=== PATIENT | female | born 1945 | race Caucasian/White ===

== ENCOUNTER 2017-09-30 16:03 | Observation (INO) | payer OTHER ==
--- NOTE | 2017-09-30 16:12 | PDOC ---
Rapid Medical Evaluation Chief Complaint: Diarrhea Time Seen by Provider: 09/30/17 16:11 Medical Evaluation: Allergies Allergy/AdvReac Type Severity Reaction Status Date / Time Sulfa (Sulfonamide Allergy Rash Verified 09/30/17 16:09 Antibiotics) 09/30/17 16:11 I have performed a brief in-person evaluation of this patient. The patient presents with a chief complaint of: diarrhea w/ abd pain x 1 week. No f/c/n/v. H/o cdif in 2015 Pertinent physical exam findings:stable w/ diffuse ttp to abd I have ordered the following:labs The patient will proceed to the ED for further evaluation Discharge Disposition - Diagnosis Diarrhea Qualifiers: Diarrhea type: unspecified type Qualified Code(s): R19.7 - Diarrhea, unspecified - Referrals - Patient Instructions - Post Discharge Activity
[2017-09-30 17:25] LABS: URINE APPEARANCE CLEAR; URINE BILIRUBIN NEGATIVE (<2.0 mg/dL); URINE COLOR YELLOW; URINE GLUCOSE (UA) NEGATIVE (NEGATIVE); URINE KETONE NEGATIVE (NEGATIVE); URINE NITRITE NEGATIVE (NEGATIVE); URINE PROTEIN NEGATIVE (NEGATIVE); URINE UROBILINOGEN NEGATIVE mg/dL (0.2-1.0)
[2017-09-30 17:27] LABS: URINE LEUK ESTERASE 3+ (NEGATIVE)
[2017-09-30 17:31] LABS: EPI CELLS RARE /HPF (FEW); URINE MUCUS RARE
[2017-09-30 17:38] LABS: ALBUMIN 3.9 g/dl (3.4-5.0); ANION GAP 9 (8-16); BLOOD UREA NITROGEN 11 mg/dL (7-18); CALCIUM 9.2 mg/dL (8.5-10.1); CHLORIDE 111 mmol/L (98-107); CO2 23 mmol/L (21-32); CREATININE 0.8 mg/dL (0.55-1.02); GLUCOSE,RANDOM 91 mg/dL (74-106); LIPASE 166 U/L (73-393); POTASSIUM 3.6 mmol/L (3.5-5.1); SGOT/AST 19 U/L (15-37); SGPT/ALT 27 U/L (12-78); SODIUM 143 mmol/L (136-145)
[2017-09-30 17:40] LABS: ALK PHOS 79 U/L (45-117); BILIRUBIN,TOTAL 0.6 mg/dL (0.2-1.0); TOT PROT 7.4 g/dl (6.4-8.2)
[2017-09-30] MEDS ORDERED: SODIUM CHLORIDE 1,000 ML IV STA ×2 (19:56→19:57)
[2017-09-30] MEDS ORDERED: ONDANSETRON 4 MG/2 ML VIAL IVPUSH ONE (19:56)
[2017-09-30] MEDS ORDERED: FAMOTIDINE IV 20 MG/12 ML VIAL IVPUSH ONE (19:56)
--- NOTE | 2017-09-30 19:59 | PDOC ---
History of Present Illness <Munira Moon - Last Filed: 10/01/17 01:55> - General History Source: Patient Exam Limitations: No Limitations - History of Present Illness Initial Comments: 09/30/17 20:42 The patient is a 72 year old female with a significant PMH of hypothyroidism, colitis, HTN, hyperlipidemia, and cdif in 2016 who presents to the emergency department with diarrhea and associated abdominal pain for the past week. The patient states the diarrhea began as hard, brown stool but has turned watery and dark over the past few days. The patient endorses she is unable to eat or drink because she has diarrhea immediately after. The patient is also complaining of nausea and feeling bloated. The patient reports she weights herself daily and has lost 7 lbs. within the last 9 days. The patient denies any recent antibiotic use, recent travel, or hospital admissions. The patient has not taken any medications for her diarrhea. The patient reports she had cdif in 2016. The patient denies blood in the stool, fever, chills, vomit, or constipation. Denies chest pain, shortness of breath, headache and dizziness. Denies dysuria, frequency, urgency and hematuria. Allergies: NKA Past surgical history: None reported. Social history: Former smoker. No reported alcohol or drug use. PCP: Dr. Meza <Nneka Henson - Last Filed: 10/01/17 03:11> - General Chief Complaint: Diarrhea Stated Complaint: DIARRHEA Time Seen by Provider: 09/30/17 16:11 Past History - Past Medical History Anemia: No Asthma: No Cancer: No Cardiac Disorders: Yes (OCCAS CHEST TIGHTNESS/PALPITATIONS") CVA: No COPD: No CHF: No Dementia: No Diabetes: No GI Disorders: Yes (COLITIS, GERD) Disorders: No HTN: Yes Hypercholesterolemia: Yes Liver Disease: No Seizures: No Thyroid Disease: Yes - Surgical History Abdominal Surgery: No Appendectomy: Yes Cardiac Surgery: No Cholecystectomy: No Lung Surgery: No Neurologic Surgery: Yes (BACK SX - 2011 AND 2013) Orthopedic Surgery: Yes (DARCY KNEE REPLACEMENTS, BACK/NECK SURGERY) - Immunization History Immunization Up to Date: Yes - Suicide/Smoking/Psychosocial Hx Smoking History: Former smoker Have you smoked in the past 12 months: No If you are a former smoker, when did you quit?: 20YRS AGO Information on smoking cessation initiated: No Hx Alcohol Use: No Drug/Substance Use Hx: No Substance Use Type: None Hx Substance Use Treatment: Yes <Munira Moon - Last Filed: 10/01/17 01:55> <Nneka Henson - Last Filed: 10/01/17 03:11> - Past Medical History Allergies/Adverse Reactions: Allergies Allergy/AdvReac Type Severity Reaction Status Date / Time Sulfa (Sulfonamide Allergy Rash Verified 09/30/17 16:09 Antibiotics) Home Medications: Ambulatory Orders Calcium Carbonate/Vitamin D3 [Calcium 250+D Tablet] 1 each PO DAILY 02/05/16 Diclofenac Potassium [Zipsor] 50 mg PO TID 02/05/16 Isosorbide Mononitrate [Imdur -] 30 mg PO DAILY 02/05/16 Levothyroxine [Synthroid -] 50 mcg PO DAILY 02/05/16 Metoprolol Tartrate [Lopressor -] 25 mg PO BID 02/05/16 [place]-3 Fatty Acids [[place]-3] 1,000 mg PO QID 02/05/16 Oxycodone HCl/Acetaminophen [Percocet 5-325 mg Tablet] 1 - 2 tab PO PRN Pregabalin [Lyrica] 100 mg PO TID 02/05/16 Simvastatin 20 mg PO DAILY 02/05/16 Zolpidem Tartrate [Ambien] 10 mg PO DAILY 02/05/16 Review of Systems - Review of Systems Able to Perform ROS?: Yes Comments:: 09/30/17 20:42 See HPI. All other systems reviewed and unremarkable <Nneka Henson - Last Filed: 10/01/17 03:11> *Physical Exam - Vital Signs Last Vital Signs Temp Pulse Resp BP Pulse Ox 98.6 F 97 H 18 142/98 98 09/30/17 16:09 09/30/17 16:09 09/30/17 16:09 09/30/17 16:09 09/30/17 16:09 <Munira Moon - Last Filed: 10/01/17 01:55> - Vital Signs Last Vital Signs Temp Pulse Resp BP Pulse Ox 98.6 F 97 H 18 142/98 98 09/30/17 16:09 09/30/17 16:09 09/30/17 16:09 09/30/17 16:09 09/30/17 16:09 - Physical Exam Comments: 09/30/17 20:42 General Physical Exam: NAD EOMI, ALFREDO MMM, OP WNL NCAT, no midline cervical tenderness RRR, nl s1/s2, no m/r/g CTABL, no w/r/r Soft, (+) Diffuse right abdominal tenderness. no guarding, no rebound No edema, WWP, no rash Neuro grossly intact, gait WNL, moving all 4 A&O x 3, mood/affect WNL. <Nneka Henson - Last Filed: 10/01/17 03:11> ED Treatment Course - LABORATORY CBC & Chemistry Diagram: 09/30/17 20:20 09/30/17 16:30 - ADDITIONAL ORDERS Additional order review: Laboratory Results 09/30/17 09/30/17 16:40 16:30 Sodium 143 Potassium 3.6 Chloride 111 H Carbon Dioxide 23 Anion Gap 9 BUN 11 Creatinine 0.8 Creat Clearance w eGFR > 60 Random Glucose 91 Calcium 9.2 Total Bilirubin 0.6 AST 19 ALT 27 Alkaline Phosphatase 79 Total Protein 7.4 Albumin 3.9 Lipase 166 Urine Color Yellow Urine Appearance Clear Urine pH 5.0 Ur Specific [place] 1.014 Urine Protein Negative Urine Glucose (UA) Negative Urine Ketones Negative Urine Blood 1+ H Urine Nitrite Negative Urine Bilirubin Negative Urine Urobilinogen Negative Ur Leukocyte Esterase 3+ H D Urine WBC (Auto) 11 Urine RBC (Auto) 1 Ur Epithelial Cells Rare Urine Mucus Rare 09/30/17 16:30 RBC Cancelled MCV Cancelled MCHC Cancelled RDW Cancelled MPV Cancelled Neutrophils % Cancelled Lymphocytes % Cancelled Monocytes % Cancelled Eosinophils % Cancelled Basophils % Cancelled <Munira Moon - Last Filed: 10/01/17 01:55> - LABORATORY CBC & Chemistry Diagram: 09/30/17 20:20 09/30/17 16:30 - ADDITIONAL ORDERS Additional order review: Laboratory Results 09/30/17 09/30/17 16:40 16:30 Sodium 143 Potassium 3.6 Chloride 111 H Carbon Dioxide 23 Anion Gap 9 BUN 11 Creatinine 0.8 Creat Clearance w eGFR > 60 Random Glucose 91 Calcium 9.2 Total Bilirubin 0.6 AST 19 ALT 27 Alkaline Phosphatase 79 Total Protein 7.4 Albumin 3.9 Lipase 166 Urine Color Yellow Urine Appearance Clear Urine pH 5.0 Ur Specific [place] 1.014 Urine Protein Negative Urine Glucose (UA) Negative Urine Ketones Negative Urine Blood 1+ H Urine Nitrite Negative Urine Bilirubin Negative Urine Urobilinogen Negative Ur Leukocyte Esterase 3+ H D Urine WBC (Auto) 11 Urine RBC (Auto) 1 Ur Epithelial Cells Rare Urine Mucus Rare 09/30/17 09/30/17 20:20 16:30 RBC 4.85 Cancelled MCV 86.4 Cancelled MCHC 33.1 Cancelled RDW 13.4 Cancelled MPV 9.9 Cancelled Neutrophils % 62.3 Cancelled Lymphocytes % 25.0 D Cancelled Monocytes % 11.2 H Cancelled Eosinophils % 1.0 Cancelled Basophils % 0.5 Cancelled - Medications Given in the ED: ED Medications Discontinued Medications Generic Name Dose Route Start Last Admin Trade Name Freq PRN Reason Stop Dose Admin Famotidine 20 mg in 12 mls @ 144 mls/hr 09/30/17 19:56 09/30/17 20:26 Pepcid 20 Mg/12 Ml Push IVPUSH 09/30/17 20:00 144 mls/hr ONCE ONE Administration Morphine Sulfate 4 mg 09/30/17 20:06 09/30/17 20:36 Morphine Injection - IVPUSH 09/30/17 20:07 4 mg ONCE ONE Administration Ondansetron HCl 4 mg 09/30/17 19:56 09/30/17 20:33 Zofran Injection IVPUSH 09/30/17 19:57 4 mg ONCE ONE Administration <Nneka Henson - Last Filed: 10/01/17 03:11> Medical Decision Making - Medical Decision Making 09/30/17 21:44 72yoF hx of colitis and prior c.diff infection presents w/ R sided abd pain and progressive diarrhea x 4 days smilar to prior colitis/c.diff infection. - labs - stool studies - CTAP - ivf, pain control, flagyl - reeval, may need admission. Pt is stating lives along and does not feel comfortable at home in current state. <Munira Moon - Last Filed: 10/01/17 01:55> - Medical Decision Making 10/01/17 02:30 Dr. Nolan paged to admit the patient. 10/01/17 03:10 Dr. Ahmed returned call. <Nneka Henson - Last Filed: 10/01/17 03:11> *DC/Admit/Observation/Transfer - Discharge Dispostion Decision to Admit order: Yes <Munira Moon - Last Filed: 10/01/17 01:55> - Attestations Scribe Attestion: 09/30/17 20:42 Documentation prepared by Nneka Henson, acting as medical appointment clerk for Munira Moon MD. <Nneka Henson - Last Filed: 10/01/17 03:11> Diagnosis at time of Disposition: Diarrhea Qualifiers: Diarrhea type: unspecified type Qualified Code(s): R19.7 - Diarrhea, unspecified - Discharge Dispostion Condition at time of disposition: Stable
[2017-09-30] MEDS ORDERED: morphine CARPU-JECT 4 MG/1 ML DISP.SYRIN IVPUSH ONE (20:06)
[2017-09-30] MEDS ORDERED: ONDANSETRON 4 MG/2 ML VIAL ONE (20:14)
[2017-09-30] MEDS ORDERED: FAMOTIDINE 20 MG/50 ML IVPB 20 MG/50 ML MG IVPB ONE (20:14)
[2017-09-30] MEDS ORDERED: morphine SULFATE 4 MG/ML VIAL ONE (20:14)
[2017-09-30 20:31] LABS: BASO % 0.5 % (0-2.0); HEMATOCRIT 41.9 % (32.4-45.2); HEMOGLOBIN 13.9 GM/dL (10.7-15.3); MCH 28.6 pg (25.7-33.7); MCHC 33.1 g/dl (32.0-36.0); MEAN CELL VOLUME 86.4 fl (80-96); MEAN PLT VOLUME 9.9 fl (7.5-11.1); MONO % 11.2 % (3.8-10.2); NEUT % 62.3 % (42.8-82.8); PLATELET COUNT 286 K/MM3 (134-434); RBC 4.85 M/mm3 (3.60-5.2); RDW 13.4 % (11.6-15.6); WHITE BLOOD COUNT 8.6 K/mm3 (4.0-10.0)
[2017-09-30 20:52] LABS: INR 1.05 (0.82-1.09); PROTHROMBIN TIME (PATIENT) 11.9 SEC (9.7-13.0)
[2017-09-30 20:55] LABS: ACTIVATED PTT 30.5 SECONDS (26.9-34.4)
[2017-10-01] MEDS ORDERED: SODIUM CHLORIDE 1,000 ML IV STA (02:15)
[2017-10-01] MEDS ORDERED: morphine CARPU-JECT 4 MG/1 ML DISP.SYRIN IVPUSH ONE (02:15)
[2017-10-01] MEDS ORDERED: morphine CARPU-JECT 2 MG/1 ML DISP.SYRIN ONE (02:35)
[2017-10-01] MEDS ORDERED: ONDANSETRON 4 MG/2 ML VIAL IVPUSH PRN (03:19)
[2017-10-01] MEDS ORDERED: D5-1/2NS+10 MEQ KCL - 10 MEQ/1,000 ML INFUS.BAG IV SCH (03:30)
[2017-10-01] MEDS ORDERED: oxyCODONE HCL 5 MG TABLET PO PRN (03:34)
[2017-10-01] MEDS: PREGABALIN 50 MG CAPSULE PO SCH ×3 (05:33→21:42)
[2017-10-01] MEDS: LEVOTHYROXINE NA 50 MCG TABLET (FP) PO SCH (06:02)
[2017-10-01] MEDS: morphine SULFATE 4 MG/ML VIAL IVPUSH PRN ×3 (06:58→18:30)
[2017-10-01 07:49] LABS: BASO % 0.6 % (0-2.0); EOS % 1.5 % (0-4.5); HEMATOCRIT 39.7 % (32.4-45.2); HEMOGLOBIN 13.4 GM/dL (10.7-15.3); LYMPH % 27.2 % (8-40); MCHC 33.7 g/dl (32.0-36.0); MEAN PLT VOLUME 10.4 fl (7.5-11.1); MONO % 13.2 % (3.8-10.2); NEUT % 57.5 % (42.8-82.8); PLATELET COUNT 227 K/MM3 (134-434); RBC 4.62 M/mm3 (3.60-5.2); RDW 13.4 % (11.6-15.6); WHITE BLOOD COUNT 6.6 K/mm3 (4.0-10.0)
[2017-10-01 08:02] LABS: ANION GAP 9 (8-16); BLOOD UREA NITROGEN 8 mg/dL (7-18); CALCIUM 8.6 mg/dL (8.5-10.1); CHLORIDE 113 mmol/L (98-107); CO2 22 mmol/L (21-32); GLUCOSE,RANDOM 89 mg/dL (74-106); SODIUM 144 mmol/L (136-145)
[2017-10-01 08:05] LABS: CREATININE 0.8 mg/dL (0.55-1.02)
[2017-10-01 08:48] LABS: POTASSIUM 3.9 mmol/L (3.5-5.1)
--- NOTE | 2017-10-01 08:54 | EKG ---
Test Reason : Blood Pressure : / mmHG Vent. Rate : 081 BPM Atrial Rate : 081 BPM P-R Int : 166 ms QRS Dur : 088 ms QT Int : 396 ms P-R-T Axes : 049 -11 023 degrees QTc Int : 460 ms SINUS RHYTHM WITH OCCASIONAL PREMATURE VENTRICULAR COMPLEXES POSSIBLE LEFT ATRIAL ENLARGEMENT BORDERLINE ECG WHEN COMPARED WITH ECG OF 05-FEB-2016 15:24, PREMATURE VENTRICULAR COMPLEXES ARE NOW PRESENT Confirmed by IWONA BEE, GIULIANO ([id number]) on 10/01/2017 8:54:20 AM Referred By: Confirmed By:GIULIANO BUSTILLO MD
[2017-10-01] MEDS: METOPROLOL TARTRATE 25 MG TABLET (FP) PO SCH ×2 (09:04→21:42)
[2017-10-01] MEDS: ISOSORBIDE MONONITRATE 30 MG TAB.SR.24H (FP) PO SCH (09:04)
--- NOTE | 2017-10-01 12:21 | HP ---
Admitting History and Physical - Primary Care Physician PCP: Lenin Meza - Admission Chief Complaint: Diarrhea History of Present Illness: 72 year old F H/O of hypothyroidism, colitis, HTN, hyperlipidemia, and cdif Diarrhea in 2016 who presents to the emergency department with 10 days H/O watery diarrhea and and crampy abdominal pain, diarrhea, watery, mixed with muvpiud, 7-10 large volume with nausea and gaseous distention, The patient reports she weights herself daily and has lost 7 lbs, denies any recent antibiotic use, recent travel, or hospital admissions, c/o poor {o intake denies any hemetmesis or melena. - Past Medical History Cardiovascular: Yes: HTN, Hyperlipdemia ...: No Musculoskeletal: Yes: Chronic low back pain Endocrine: Yes: Hypothyroidism - Past Surgical History Past Surgical History: Yes: Joint Replacement - Smoking History Smoking history: Former smoker Have you smoked in the past 12 months: No If you are a former smoker, when did you quit?: 30YRS AGO - Alcohol/Substance Use Hx Alcohol Use: No History of Substance Use: reports: None - Social History ADL: Independent History of Recent Travel: No Home Medications - Allergies Allergies/Adverse Reactions: Allergies Allergy/AdvReac Type Severity Reaction Status Date / Time Sulfa (Sulfonamide Allergy Rash Verified 09/30/17 16:09 Antibiotics) - Home Medications Home Medications: Ambulatory Orders Calcium Carbonate/Vitamin D3 [Calcium 250+D Tablet] 1 each PO DAILY 02/05/16 Diclofenac Potassium [Zipsor] 50 mg PO TID 02/05/16 Isosorbide Mononitrate [Imdur -] 30 mg PO DAILY 02/05/16 Levothyroxine [Synthroid -] 50 mcg PO DAILY 02/05/16 Metoprolol Tartrate [Lopressor -] 25 mg PO BID 02/05/16 [place]-3 Fatty Acids [[place]-3] 1,000 mg PO QID 02/05/16 Oxycodone HCl/Acetaminophen [Percocet 5-325 mg Tablet] 1 - 2 tab PO PRN Pregabalin [Lyrica] 100 mg PO TID 02/05/16 Simvastatin 20 mg PO DAILY 02/05/16 Zolpidem Tartrate [Ambien] 10 mg PO DAILY 02/05/16 Family Disease History - Family Disease History Family Disease History: CA: Father Review of Systems - Review of Systems Constitutional: reports: Loss of Appetite, Malaise. denies: Diaphoresis, Fever HENT: denies: Difficult Swallowing, Ear Discharge, Epistaxis Neck: denies: Decreased ROM, Lumps Cardiovascular: denies: Chest Pain, Edema, Palpitations Respiratory: denies: Exercise Intolerance, Hemoptysis, Orthopnea Gastrointestinal: reports: Abdominal Pain, Bloating, Diarrhea, Nausea. denies: Melena, Rectal Bleeding, Vomiting, Vomiting Blood Musculoskeletal: reports: Back Pain Integumentary: denies: Blister, Bruising Endocrine: denies: Excessive Sweating, Flushing Hematology/Lymphatic: denies: Easily Bruised, Excessive Bleeding Psychiatric: reports: Altered Sleep Pattern Pain Intensity: 6 Physical Examination Vital Signs: Vital Signs Temperature 98.5 F 10/01/17 10:00 Pulse Rate 73 10/01/17 10:00 Respiratory Rate 16 10/01/17 10:00 Blood Pressure 135/83 10/01/17 10:00 O2 Sat by Pulse Oximetry (%) 98 10/01/17 10:00 Constitutional: Yes: Well Nourished, No Distress, Anxious Eyes: Yes: Conjunctiva Clear, EOM Intact. No: Diplopia HENT: Yes: Atraumatic, Normocephalic. No: Drooling, Hoarseness Neck: Yes: Supple, Trachea Midline. No: Decreased ROM, Lymphadenopathy Cardiovascular: Yes: Regular Rate and Rhythm, S1, S2. No: Bruit, Murmur, Rub Respiratory: Yes: Regular, CTA Bilaterally Gastrointestinal: Yes: Normal Bowel Sounds, Soft, Tenderness (Left LQ). No: Distention, Hematemesis, Melena, Splenomegaly Musculoskeletal: Yes: Back Pain. No: Joint Swelling Extremities: Yes: WNL. No: Calf Tenderness, Cyanosis Edema: No Peripheral Pulses WNL: Yes Peripheral Pulses: Left Doralis Pedis: 0, Right Dorsalis Pedis: 0 Neurological: Yes: WNL, Alert, Oriented. No: Aphasia, Asterixis ...Motor Strength: WNL, LUE, LLE, RUE, RLE Psychiatric: Yes: Alert, Oriented. No: Agitated, Suicidal Ideation Labs: CBC, BMP 10/01/17 07:15 10/01/17 07:15 Imaging - Results Cat Scan: Report Reviewed (No Collitis, Diverticullitis) Problem List - Problems (1) Diarrhea Assessment/Plan: Watery no fever TWBC normal, CT normal, C Diff -ve, will start Lactose free diet, GI consult last colonoscopy -ve 2 yrs ago. Code(s): R19.7 - DIARRHEA, UNSPECIFIED Qualifiers: Diarrhea type: unspecified type Qualified Code(s): R19.7 - Diarrhea, unspecified (2) History of - hypothyroidism Assessment/Plan: Cont Levothyroxine F/U TSH Code(s): Z86.39 - PERSONAL HISTORY OF ENDO, NUTRITIONAL AND METABOLIC DISEASE (3) Spinal stenosis Assessment/Plan: S/p Lamenectomy cont Pain meds Code(s): M48.00 - SPINAL STENOSIS, SITE UNSPECIFIED (4) Hypertension Assessment/Plan: Well controlled cont Home meds Code(s): I10 - ESSENTIAL (PRIMARY) HYPERTENSION (5) Vasospastic angina Assessment/Plan: Normal Cath on Imdur Code(s): I20.1 - ANGINA PECTORIS WITH DOCUMENTED SPASM
--- NOTE | 2017-10-01 14:03 | CON.GI ---
Consult Consult Specialty:: GI: Dr. Gutierrez covering for Dr. Love Referred by:: Dr. Nolan Reason for Consultation:: Diarrhea - History of Present Illness Chief Complaint: Diarrhea History of Present Illness: 72F admitted for 10 days work of frequent watery BM's. She was a previous patient of Dr. Galloway. in review of [facility], Dr. Lacy performed EGD and colonoscopy for her 03/24 due to unexplained diarrhea. EGD revealed reflux esophagitis and colonoscopy revealed moderate diverticulosis and was otherwise normal. biopsies from borth procedures were unrevealing for a source of diarrhea. O&P study was unrevealing 05/24. She was FOBT + on admission yesterday. She states that the diarrhea comes and goes as does episodes of constipation however this diarrhea was more prolonged leading to her eval in ER. She complains of abdominal pain in the lower abdomen as well. She denies recent travel, change in diet or recent antibiotic use. There is no precipitating foods and it occurs with and without eating, sometimes waking her from her sleep. She denies unintentional weight loss, fevers/chills, rectal bleeding or melena. There is no family nhistory of colorectal cancer or IBD. Stool C. Diff toxin and antigen this admission were negative. CBC and CMP are normal. She continues to have loose bowel movements. She has not taken any antidiarrheals at home or in hospital. She denies the introduction of any new medications. There has been no vomiting but she does complain of nausea. - History Source History Provided By: Patient, Medical Record - Past Medical History Cardio/Vascular: Yes: HTN, Hyperlipdemia ...: No Musculoskeletal: Yes: Chronic low back pain Endocrine: Yes: Hypothyroidism - Past Surgical History Past Surgical History: Yes: Joint Replacement Additional Surgical History: B/L knee surgeries, back surgery - Alcohol/Substance Use Hx Alcohol Use: No History of Substance Use: reports: None - Smoking History Smoking history: Former smoker Have you smoked in the past 12 months: No If you are a former smoker, when did you quit?: 30YRS AGO - Social History ADL: Independent Occupation: retired clerical worker Place of : [facility] History of Recent Travel: No Home Medications - Allergies Allergies/Adverse Reactions: Allergies Allergy/AdvReac Type Severity Reaction Status Date / Time Sulfa (Sulfonamide Allergy Rash Verified 09/30/17 16:09 Antibiotics) - Home Medications Home Medications: Ambulatory Orders Calcium Carbonate/Vitamin D3 [Calcium 250+D Tablet] 1 each PO DAILY 02/05/16 Diclofenac Potassium [Zipsor] 50 mg PO TID 02/05/16 Isosorbide Mononitrate [Imdur -] 30 mg PO DAILY 02/05/16 Levothyroxine [Synthroid -] 50 mcg PO DAILY 02/05/16 Metoprolol Tartrate [Lopressor -] 25 mg PO BID 02/05/16 [place]-3 Fatty Acids [[place]-3] 1,000 mg PO QID 02/05/16 Oxycodone HCl/Acetaminophen [Percocet 5-325 mg Tablet] 1 - 2 tab PO PRN Pregabalin [Lyrica] 100 mg PO TID 02/05/16 Simvastatin 20 mg PO DAILY 02/05/16 Zolpidem Tartrate [Ambien] 10 mg PO DAILY 02/05/16 Family Disease History - Family Disease History Family Disease History: Heart Disease: Mother (: 89: CAD), CA: Father ( : 63: leukemia), Other: Daughter (2, healthy) Other Family History: No family history of colorectal cancer, IBD, celiac disease Review of Systems - Review of Systems Constitutional: denies: Chills, Fever, Unintentional Wgt. Loss Cardiovascular: denies: Chest Pain Respiratory: denies: SOB Gastrointestinal: reports: Abdominal Pain, Constipation (intermittent), Diarrhea , Dysphagia (occasional), Nausea. denies: Rectal Bleeding, Vomiting Genitourinary: denies: Burning Musculoskeletal: reports: Extremity Pain (LE B/L) Physical Exam-GI Vital Signs: Vital Signs Temperature 98.5 F 10/01/17 10:00 Pulse Rate 73 10/01/17 10:00 Respiratory Rate 16 10/01/17 10:00 Blood Pressure 135/83 10/01/17 10:00 O2 Sat by Pulse Oximetry (%) 98 10/01/17 10:00 Constitutional: Yes: Calm Eyes: No: Sclera Icterus Cardiovascular: Yes: Regular Rate and Rhythm. No: Murmur Respiratory: Yes: CTA Bilaterally Gastrointestinal Inspection: No: Distention, Scars ...Auscultate: Yes: Normoactive Bowel Sounds ...Palpate: Yes: Tenderness (Mild TTP below left lower ribs) ...Percussion: No: Tympanitic ...Rectal Exam: Yes: Sphincter Tone Poor, Other (Chemistry Account Manager present: No external lesions, no masses, no stool in rectal vault) Edema: No (No LE edema) Neurological: Yes: Alert, Oriented Labs: CBC, BMP 10/01/17 07:15 10/01/17 07:15 INR, PTT INR 1.05 (0.82-1.09) 09/30/17 20:20 Hepatic Panel Total Bilirubin 0.6 mg/dL (0.2-1.0) 09/30/17 16:30 AST 19 U/L (15-37) 09/30/17 16:30 ALT 27 U/L (12-78) 09/30/17 16:30 Alkaline Phosphatase 79 U/L (45-117) 09/30/17 16:30 Albumin 3.9 g/dl (3.4-5.0) 09/30/17 16:30 Imaging - Results Cat Scan: Report Reviewed, Image Reviewed Problem List - Problems (1) Diarrhea Assessment/Plan: Assessment: acute episode with intermittent bouts in the past along with episodes of constipation: Secretory in nature by description of the day time and nocturnal symptoms ? etiology: atypical presentation of narcotic bowel syndrome, ? infectious, ? bile acid malabsorption, production of secretagogues, ? IBS Plan: Low residue / lactose free diet Stool culture, fecal leukocytes Check celiac serologies (negative duodenal biopsies 2 years ago) Check fasting gastrin level Trial of cholestyramine in afternoon after meds given Code(s): R19.7 - DIARRHEA, UNSPECIFIED Qualifiers: Diarrhea type: unspecified type Qualified Code(s): R19.7 - Diarrhea, unspecified
[2017-10-01] MEDS ORDERED: CHOLESTYRAMINE/SUCROSE 4 GM PACKET PO SCH (15:15)
[2017-10-01] MEDS: ACETAMINOPHEN 325 MG TABLET (FP) PO PRN (16:07)
[2017-10-01] MEDS: ATORVASTATIN CA 10 MG TABLET (FP) PO SCH (21:42)
[2017-10-01] MEDS: ZOLPIDEM TARTRATE 5 MG TABLET PO PRN (21:43)
[2017-10-02] MEDS: LEVOTHYROXINE NA 50 MCG TABLET (FP) PO SCH (06:07)
[2017-10-02] MEDS: morphine SULFATE 4 MG/ML VIAL IVPUSH PRN ×2 (06:07→13:58)
[2017-10-02] MEDS: PREGABALIN 50 MG CAPSULE PO SCH ×3 (06:07→21:58)
[2017-10-02 08:16] LABS: BASO % 0.5 % (0-2.0); EOS % 1.7 % (0-4.5); HEMATOCRIT 38.6 % (32.4-45.2); HEMOGLOBIN 13.1 GM/dL (10.7-15.3); LYMPH % 24.7 % (8-40); MCH 29.2 pg (25.7-33.7); MCHC 33.9 g/dl (32.0-36.0); MEAN CELL VOLUME 86.2 fl (80-96); MEAN PLT VOLUME 10.5 fl (7.5-11.1); MONO % 11.1 % (3.8-10.2); PLATELET COUNT 270 K/MM3 (134-434); RBC 4.48 M/mm3 (3.60-5.2); RDW 13.3 % (11.6-15.6); WHITE BLOOD COUNT 6.1 K/mm3 (4.0-10.0)
[2017-10-02 09:02] LABS: CHLORIDE 113 mmol/L (98-107); POTASSIUM 3.7 mmol/L (3.5-5.1); SODIUM 146 mmol/L (136-145)
[2017-10-02 09:19] LABS: ANION GAP 9 (8-16); BLOOD UREA NITROGEN 5 mg/dL (7-18); CALCIUM 8.5 mg/dL (8.5-10.1); CO2 24 mmol/L (21-32); CREATININE 0.7 mg/dL (0.55-1.02); GLUCOSE,RANDOM 79 mg/dL (74-106)
[2017-10-02 09:56] LABS: MAGNESIUM 2.1 mg/dL (1.8-2.4)
[2017-10-02] MEDS: METOPROLOL TARTRATE 25 MG TABLET (FP) PO SCH ×2 (10:22→21:58)
[2017-10-02] MEDS: ISOSORBIDE MONONITRATE 30 MG TAB.SR.24H (FP) PO SCH (10:22)
[2017-10-02] MEDS: POTASSIUM CHLORIDE 10 MEQ in DEXTROSE 5%-0.45% SALINE 1,000 ML IVPB SCH ×2 (13:57→18:26)
--- NOTE | 2017-10-02 14:10 | PN ---
GI Progress Note Subjective: Still with diarrhea She feels that the cholestyramine made it worse - Objective Vital Signs: Vital Signs Temperature 98.6 F 10/02/17 09:00 Pulse Rate 69 10/02/17 09:00 Respiratory Rate 18 10/02/17 09:00 Blood Pressure 126/93 10/02/17 09:00 O2 Sat by Pulse Oximetry (%) 98 10/02/17 09:00 Constitutional: Calm Eyes: No: Sclera Icterus Cardiovascular: Yes: Regular Rate and Rhythm Gastrointestinal Inspection: No: Distention ...Auscultate: Yes: Normoactive Bowel Sounds ...Palpate: Yes: Tenderness (complains of mild TTP in the pelvis). No: Guarding , Tenderness, Rebound ...Percussion: No: Tympanitic Edema: No (No LE edema) Labs: CBC, BMP 10/02/17 06:36 10/02/17 06:36 INR, PTT INR 1.05 (0.82-1.09) 09/30/17 20:20 Labs: 10/02/17 10/02/17 06:36 06:36 C-Reactive Protein 0.4 H Gastrin Pending Laboratory Tests 10/02/17 06:36 IgA Pending Endomysial IgA Ab Pending Tiss Transglutamin IgG Pending Tiss Transglutamin IgA Pending Anti-Gliadin IgG Ab Pending Anti-Gliadin IgA Ab Pending Problem List - Problems (1) Diarrhea Assessment/Plan: Diarrhea persists C. Diff negative Will give antidiarrheal today Serologic w/u pending Stool culture pending / O&P pending / Gram's stain pending Medication elimination as feasible ? need for morphine and roxicodone Code(s): R19.7 - DIARRHEA, UNSPECIFIED Qualifiers: Diarrhea type: unspecified type Qualified Code(s): R19.7 - Diarrhea, unspecified
[2017-10-02] MEDS ORDERED: LOPERAMIDE HCL 2 MG CAPSULE PO ONE (14:15)
[2017-10-02] MEDS: CHOLESTYRAMINE/ASPARTAME 4 GM PACKET PO SCH (14:54)
--- NOTE | 2017-10-02 15:49 | PN ---
Progress Note, Physician Chief Complaint: few loose stool - Current Medication List Current Medications: Active Medications Acetaminophen (Tylenol -) 325 mg PO Q6H PRN PRN Reason: PAIN LEVEL 6-10 Last Admin: 10/01/17 16:07 Dose: 325 mg Atorvastatin Calcium (Lipitor -) 10 mg PO HS [facility] Last Admin: 10/01/17 21:42 Dose: 10 mg Cholestyramine Resin (Questran Light Packet -) 2 gm PO DAILY@1500 [facility] Last Admin: 10/02/17 14:54 Dose: Not Given Potassium Chloride 10 meq/ (Dextrose/Sodium Chloride) 1,005 mls @ 100 mls/hr IVPB Q10H [facility] Last Admin: 10/02/17 13:57 Dose: 100 mls/hr Isosorbide Mononitrate (Imdur -) 30 mg PO DAILY [facility] Last Admin: 10/02/17 10:22 Dose: 30 mg Levothyroxine Sodium (Synthroid -) 50 mcg PO DAILY@0700 [facility] Last Admin: 10/02/17 06:07 Dose: 50 mcg Metoprolol Tartrate (Lopressor -) 25 mg PO BID [facility] Last Admin: 10/02/17 10:22 Dose: 25 mg Ondansetron HCl (Zofran Injection) 4 mg IVPUSH Q6H PRN PRN Reason: NAUSEA Last Admin: 10/01/17 06:02 Dose: 4 mg Oxycodone HCl (Roxicodone -) 10 mg PO Q6H PRN PRN Reason: PAIN LEVEL 6-10 Pregabalin (Lyrica -) 100 mg PO TID [facility] Last Admin: 10/02/17 13:57 Dose: 100 mg Zolpidem Tartrate (Ambien -) 5 mg PO HS PRN PRN Reason: INSOMNIA Last Admin: 10/01/17 21:43 Dose: 5 mg - Objective Vital Signs: Vital Signs Temperature 98.6 F 10/02/17 15:00 Pulse Rate 66 10/02/17 15:00 Respiratory Rate 18 10/02/17 15:00 Blood Pressure 120/68 10/02/17 15:00 O2 Sat by Pulse Oximetry (%) 98 10/02/17 09:00 Constitutional: Yes: Well Nourished, No Distress, Anxious Eyes: Yes: Conjunctiva Clear, EOM Intact. No: Diplopia HENT: Yes: Atraumatic, Normocephalic. No: Drooling, Hoarseness Neck: Yes: Supple, Trachea Midline. No: Decreased ROM, Lymphadenopathy Cardiovascular: Yes: Regular Rate and Rhythm, S1, S2. No: Bruit, Murmur, Rub Respiratory: Yes: Regular, CTA Bilaterally Gastrointestinal: Yes: Normal Bowel Sounds, Soft, Tenderness (Left LQ). No: Distention, Hematemesis, Melena, Splenomegaly Musculoskeletal: Yes: Back Pain. No: Joint Swelling Extremities: Yes: WNL. No: Calf Tenderness, Cyanosis Edema: No Peripheral Pulses WNL: Yes Peripheral Pulses: Left Doralis Pedis: 0, Right Dorsalis Pedis: 0 Neurological: Yes: WNL, Alert, Oriented. No: Aphasia, Asterixis ...Motor Strength: WNL, LUE, LLE, RUE, RLE Psychiatric: Yes: Alert, Oriented. No: Agitated, Suicidal Ideation Labs: CBC, BMP 10/02/17 06:36 10/02/17 06:36 INR, PTT INR 1.05 (0.82-1.09) 09/30/17 20:20 Problem List - Problems (1) Diarrhea Assessment/Plan: Watery no fever TWBC normal, CT normal, C Diff -ve, will start Lactose free diet, GI consult last colonoscopy -ve 2 yrs ago. Code(s): R19.7 - DIARRHEA, UNSPECIFIED Qualifiers: Diarrhea type: unspecified type Qualified Code(s): R19.7 - Diarrhea, unspecified (2) History of - hypothyroidism Assessment/Plan: Cont Levothyroxine F/U TSH Code(s): Z86.39 - PERSONAL HISTORY OF ENDO, NUTRITIONAL AND METABOLIC DISEASE (3) Spinal stenosis Assessment/Plan: S/p Lamenectomy cont Pain meds Code(s): M48.00 - SPINAL STENOSIS, SITE UNSPECIFIED (4) Hypertension Assessment/Plan: Well controlled cont Home meds Code(s): I10 - ESSENTIAL (PRIMARY) HYPERTENSION (5) Vasospastic angina Assessment/Plan: Normal Cath on Imdur Code(s): I20.1 - ANGINA PECTORIS WITH DOCUMENTED SPASM
[2017-10-02] MEDS: ZOLPIDEM TARTRATE 5 MG TABLET PO PRN (21:58)
[2017-10-02] MEDS: oxyCODONE HCL 5 MG TABLET PO PRN (21:58)
[2017-10-02] MEDS: ATORVASTATIN CA 10 MG TABLET (FP) PO SCH (21:58)
[2017-10-03] MEDS: PREGABALIN 50 MG CAPSULE PO SCH ×3 (05:58→21:42)
[2017-10-03] MEDS: LEVOTHYROXINE NA 50 MCG TABLET (FP) PO SCH (05:59)
[2017-10-03 06:34] LABS: BASO % 0.3 % (0-2.0); EOS % 1.6 % (0-4.5); HEMATOCRIT 38.1 % (32.4-45.2); HEMOGLOBIN 12.9 GM/dL (10.7-15.3); LYMPH % 28.2 % (8-40); MCH 29.1 pg (25.7-33.7); MCHC 33.8 g/dl (32.0-36.0); MEAN CELL VOLUME 85.9 fl (80-96); MEAN PLT VOLUME 10.1 fl (7.5-11.1); MONO % 14.3 % (3.8-10.2); NEUT % 55.6 % (42.8-82.8); PLATELET COUNT 268 K/MM3 (134-434); RBC 4.44 M/mm3 (3.60-5.2); RDW 13.5 % (11.6-15.6); WHITE BLOOD COUNT 6.7 K/mm3 (4.0-10.0)
[2017-10-03 07:17] LABS: CHLORIDE 111 mmol/L (98-107); POTASSIUM 3.8 mmol/L (3.5-5.1); SODIUM 144 mmol/L (136-145)
[2017-10-03 07:33] LABS: ANION GAP 6 (8-16); BLOOD UREA NITROGEN 6 mg/dL (7-18); CALCIUM 8.3 mg/dL (8.5-10.1); CO2 27 mmol/L (21-32); CREATININE 0.8 mg/dL (0.55-1.02); GLUCOSE,RANDOM 80 mg/dL (74-106)
[2017-10-03] MEDS: oxyCODONE HCL 5 MG TABLET PO PRN ×2 (08:44→21:42)
[2017-10-03] MEDS: ISOSORBIDE MONONITRATE 30 MG TAB.SR.24H (FP) PO SCH (09:35)
[2017-10-03] MEDS: METOPROLOL TARTRATE 25 MG TABLET (FP) PO SCH ×2 (09:35→21:41)
--- NOTE | 2017-10-03 12:46 | PN ---
Progress Note, Physician Chief Complaint: few loose stool, feels better - Current Medication List Current Medications: Active Medications Acetaminophen (Tylenol -) 325 mg PO Q6H PRN PRN Reason: PAIN LEVEL 6-10 Last Admin: 10/01/17 16:07 Dose: 325 mg Atorvastatin Calcium (Lipitor -) 10 mg PO HS [facility] Last Admin: 10/02/17 21:58 Dose: 10 mg Cholestyramine Resin (Questran Light Packet -) 2 gm PO DAILY@1500 [facility] Last Admin: 10/02/17 14:54 Dose: Not Given Isosorbide Mononitrate (Imdur -) 30 mg PO DAILY [facility] Last Admin: 10/03/17 09:35 Dose: 30 mg Levothyroxine Sodium (Synthroid -) 50 mcg PO DAILY@0700 [facility] Last Admin: 10/03/17 05:59 Dose: 50 mcg Metoprolol Tartrate (Lopressor -) 25 mg PO BID [facility] Last Admin: 10/03/17 09:35 Dose: 25 mg Ondansetron HCl (Zofran Injection) 4 mg IVPUSH Q6H PRN PRN Reason: NAUSEA Last Admin: 10/01/17 06:02 Dose: 4 mg Oxycodone HCl (Roxicodone -) 10 mg PO Q6H PRN PRN Reason: PAIN LEVEL 6-10 Last Admin: 10/03/17 08:44 Dose: 10 mg Pregabalin (Lyrica -) 100 mg PO TID [facility] Last Admin: 10/03/17 05:58 Dose: 100 mg Zolpidem Tartrate (Ambien -) 5 mg PO HS PRN PRN Reason: INSOMNIA Last Admin: 10/02/17 21:58 Dose: 5 mg - Objective Vital Signs: Vital Signs Temperature 98.5 F 10/03/17 10:00 Pulse Rate 74 10/03/17 10:00 Respiratory Rate 18 10/03/17 10:00 Blood Pressure 129/64 10/03/17 10:00 O2 Sat by Pulse Oximetry (%) 95 10/03/17 10:00 Constitutional: Yes: Well Nourished, No Distress, Anxious HENT: Yes: Atraumatic, Normocephalic. No: Drooling, Hoarseness Neck: Yes: Supple, Trachea Midline. No: Decreased ROM, Lymphadenopathy Cardiovascular: Yes: Regular Rate and Rhythm, S1, S2. No: Bruit, Murmur, Rub Respiratory: Yes: Regular, CTA Bilaterally Gastrointestinal: Yes: Normal Bowel Sounds, Soft, Tenderness (Left LQ). No: Distention, Hematemesis, Melena, Splenomegaly Musculoskeletal: Yes: Back Pain. No: Joint Swelling Extremities: Yes: WNL. No: Calf Tenderness, Cyanosis, Left Doralis Pedis: 0, Right Dorsalis Pedis: 0 Neurological: Yes: WNL, Alert, Oriented. No: Aphasia, Asterixis Motor Strength: WNL, LUE, LLE, RUE, RLE Psychiatric: Yes: Alert, Oriented. No: Agitated, Suicidal Ideation Labs: CBC, BMP 10/03/17 06:00 10/03/17 06:00 INR, PTT INR 1.05 (0.82-1.09) 09/30/17 20:20 Problem List - Problems (1) Diarrhea Assessment/Plan: Watery no fever TWBC normal, CT normal, C Diff -ve, will start Lactose free diet, GI consult appreciated , diarrhea improved after cholestyramine and imodium. F/U pending w/u. . Code(s): R19.7 - DIARRHEA, UNSPECIFIED Qualifiers: Diarrhea type: unspecified type Qualified Code(s): R19.7 - Diarrhea, unspecified (2) History of - hypothyroidism Assessment/Plan: Cont Levothyroxine F/U TSH Code(s): Z86.39 - PERSONAL HISTORY OF ENDO, NUTRITIONAL AND METABOLIC DISEASE (3) Spinal stenosis Assessment/Plan: S/p Lamenectomy cont Pain meds Code(s): M48.00 - SPINAL STENOSIS, SITE UNSPECIFIED (4) Hypertension Assessment/Plan: Well controlled cont Home meds Code(s): I10 - ESSENTIAL (PRIMARY) HYPERTENSION (5) Vasospastic angina Assessment/Plan: Normal Cath on Imdur Code(s): I20.1 - ANGINA PECTORIS WITH DOCUMENTED SPASM
[2017-10-03] MEDS: CHOLESTYRAMINE/ASPARTAME 4 GM PACKET PO SCH (15:03)
--- NOTE | 2017-10-03 15:57 | PN ---
GI Progress Note Subjective: No acute events No abdominal pain One scant BM today Received Imodium x 1 yesterday - Objective Vital Signs: Vital Signs Temperature 99.0 F 10/03/17 13:45 Pulse Rate 65 10/03/17 13:45 Respiratory Rate 20 10/03/17 13:45 Blood Pressure 119/69 10/03/17 13:45 O2 Sat by Pulse Oximetry (%) 95 10/03/17 10:00 Constitutional: Calm Eyes: No: Sclera Icterus Cardiovascular: Yes: Regular Rate and Rhythm Respiratory: Yes: CTA Bilaterally Gastrointestinal Inspection: No: Distention ...Auscultate: Yes: Normoactive Bowel Sounds ...Palpate: No: Tenderness ...Percussion: No: Tympanitic Edema: No (No edema) Neurological: Yes: Alert, Oriented Labs: CBC, BMP 10/03/17 06:00 10/03/17 06:00 INR, PTT INR 1.05 (0.82-1.09) 09/30/17 20:20 Microbiology: 10/01/17 20:45 Stool Escherichia coli 0157 Culture - Final NO GROWTH OF VIBRIO SPECIES OBTAINED NO GROWTH OF E COLI 0157 OBTAINED 10/01/17 14:00 Stool Gram Stain - Negative 10/01/17 20:45 Stool Salmonella/Shigella Culture - Preliminary 10/01/17 20:45 Stool Yersinia Culture - Preliminary NO ENTERIC PATHOGENS, 24 HOURS, ON PRIMARY PLATES NO ENTERIC PATHOGENS, 24 HOURS, ON PRIMARY PLATES Problem List - Problems (1) Diarrhea Assessment/Plan: Clinically improved after 1 dose of Imodium Tolerating PO Minimize opiates Follow-up serum gastrin, celiac serologies If diarrhea persists, continued inpatient eval. If continued improvement, outpatient follow-up with Dr. Love Code(s): R19.7 - DIARRHEA, UNSPECIFIED Qualifiers: Diarrhea type: unspecified type Qualified Code(s): R19.7 - Diarrhea, unspecified
[2017-10-03] MEDS: ATORVASTATIN CA 10 MG TABLET (FP) PO SCH (21:41)
[2017-10-03] MEDS: ZOLPIDEM TARTRATE 5 MG TABLET PO PRN (21:42)
[2017-10-03] MEDS: ACETAMINOPHEN 325 MG TABLET (FP) PO PRN (21:43)
[2017-10-04] MEDS: PREGABALIN 50 MG CAPSULE PO SCH ×2 (06:34→13:46)
[2017-10-04] MEDS: LEVOTHYROXINE NA 50 MCG TABLET (FP) PO SCH (06:34)
[2017-10-04] MEDS: oxyCODONE HCL 5 MG TABLET PO PRN (06:37)
[2017-10-04 07:50] LABS: BASO % 0.4 % (0-2.0); EOS % 1.3 % (0-4.5); HEMATOCRIT 39.2 % (32.4-45.2); HEMOGLOBIN 13.4 GM/dL (10.7-15.3); LYMPH % 29.3 % (8-40); MCH 29.3 pg (25.7-33.7); MCHC 34.1 g/dl (32.0-36.0); MEAN PLT VOLUME 10.6 fl (7.5-11.1); MONO % 11.2 % (3.8-10.2); NEUT % 57.8 % (42.8-82.8); PLATELET COUNT 269 K/MM3 (134-434); RBC 4.56 M/mm3 (3.60-5.2); RDW 13.8 % (11.6-15.6); WHITE BLOOD COUNT 6.4 K/mm3 (4.0-10.0)
[2017-10-04 08:17] LABS: ANION GAP 7 (8-16); BLOOD UREA NITROGEN 8 mg/dL (7-18); CALCIUM 8.5 mg/dL (8.5-10.1); CHLORIDE 110 mmol/L (98-107); CO2 27 mmol/L (21-32); CREATININE 0.7 mg/dL (0.55-1.02); GLUCOSE,RANDOM 80 mg/dL (74-106); POTASSIUM 3.7 mmol/L (3.5-5.1); SODIUM 144 mmol/L (136-145)
[2017-10-04] MEDS: ISOSORBIDE MONONITRATE 30 MG TAB.SR.24H (FP) PO SCH (09:15)
[2017-10-04] MEDS: METOPROLOL TARTRATE 25 MG TABLET (FP) PO SCH (09:15)
[2017-10-04 12:16] VITALS: BMI 26.7
[2017-10-04 13:13] VITALS: BP 123/67; PULSE 71; TEMP 98.5
--- NOTE | 2017-10-04 13:16 | DS ---
Physical Examination Vital Signs: Vital Signs Temperature 36.9 C 10/04/17 10:00 Pulse Rate 71 10/04/17 10:00 Respiratory Rate 18 10/04/17 10:00 Blood Pressure 123/67 10/04/17 10:00 O2 Sat by Pulse Oximetry (%) 94 L 10/04/17 10:00 Constitutional: Yes: Well Nourished, No Distress, Calm Cardiovascular: Yes: Regular Rate and Rhythm. No: Gallop, Murmur, Rub Respiratory: Yes: Regular, CTA Bilaterally. No: Rales, Rhonchi, Wheezes Gastrointestinal: Yes: Normal Bowel Sounds, Soft. No: Distention, Tenderness Extremities: Yes: WNL Edema: No Labs: CBC, BMP 10/04/17 06:00 10/04/17 06:00 Discharge Summary Reason For Visit: DIARRHEA Current Active Problems Diarrhea (Acute) Vasospastic angina (Acute) Hospital Course: (1) Diarrhea Code(s): R19.7 - DIARRHEA, UNSPECIFIED Qualifiers: Diarrhea type: unspecified type Qualified Code(s): R19.7 - Diarrhea, unspecified (2) History of - hypothyroidism Code(s): Z86.39 - PERSONAL HISTORY OF ENDO, NUTRITIONAL AND METABOLIC DISEASE (3) Spinal stenosis Code(s): M48.00 - SPINAL STENOSIS, SITE UNSPECIFIED (4) Hypertension Code(s): I10 - ESSENTIAL (PRIMARY) HYPERTENSION (5) Vasospastic angina Code(s): I20.1 - ANGINA PECTORIS WITH DOCUMENTED SPASM (6) UTI Ms Phipps is a very pleasant 72 year old female who comes in with diarrhea. She was admitted and seen by GI. She underwent infectious work up which was negative. While she was having diarrhea she was hydrated with IVF to prevent dehydration. When infectious work up negative, she was given one dose of imodium. Diarrhea resolved. She had some burning on urination and urinalysis positive for UTI. She is safe for discharge home with keflex. She should follow up closely with Dr Love and her PCP. 32 minutes spent in preparation of this discharge Condition: Stable - Instructions Diet, Activity, Other Instructions: resume previous diet and activity Referrals: Barb Love MD [Staff Physician] - Lenin Meza MD [Primary Care Provider] - Disposition: HOME - Home Medications Comprehensive Discharge Medication List: Ambulatory Orders Calcium Carbonate/Vitamin D3 [Calcium 250+D Tablet] 1 each PO DAILY 02/05/16 Diclofenac Potassium [Zipsor] 50 mg PO TID 02/05/16 Isosorbide Mononitrate [Imdur -] 30 mg PO DAILY 02/05/16 Levothyroxine [Synthroid -] 50 mcg PO DAILY 02/05/16 Metoprolol Tartrate [Lopressor -] 25 mg PO BID 02/05/16 [place]-3 Fatty Acids [[place]-3] 1,000 mg PO QID 02/05/16 Oxycodone HCl/Acetaminophen [Percocet 5-325 mg Tablet] 1 - 2 tab PO PRN Pregabalin [Lyrica] 100 mg PO TID 02/05/16 Simvastatin 20 mg PO DAILY 02/05/16 Zolpidem Tartrate [Ambien] 10 mg PO DAILY 02/05/16 Cephalexin Monohydrate [Keflex -] 500 mg PO BID #10 capsule 10/04/17 Cholestyramine/Aspartame [Questran Light Packet -] 2 gm PO DAILY@1500 #30 packet 10/04/17 Lactobacillus Acidophilus [Acidophilus Lactobacillus] 1 each PO DAILY #14 capsule 10/04/17
[2017-10-05 00:10] LABS: GLIADIN ANTIBODY IGA 1 units (0-19); GLIADIN ANTIBODY IGG 2 units (0-19); TRANSGLUTAMINASE IGG < 2 U/mL (0-5)
== END 2017-10-04 14:26 | disposition home or self-care (01) ==
LOC: JER 16:03 → JERBED 10-01 01:55 → J4S 10-01 04:13
PROVIDERS: ADMIT Internal Medicine; ATTEND Internal Medicine
PROC: 3E03329 Introduction of Other Anti-infective into Peripheral Vein, Percutaneous Approach (ICD-10-PCS; principal; 2017-10-01)
PROC: 3E033NZ Introduction of Analgesics, Hypnotics, Sedatives into Peripheral Vein, Percutaneous Approach (ICD-10-PCS; 2017-10-01)
PROC: 3E033GC Introduction of Other Therapeutic Substance into Peripheral Vein, Percutaneous Approach (ICD-10-PCS; 2017-10-01)
PROC: 3E0337Z Introduction of Electrolytic and Water Balance Substance into Peripheral Vein, Percutaneous Approach (ICD-10-PCS; 2017-10-01)
DX: R19.7 Diarrhea, unspecified (principal); I10 Essential (primary) hypertension; E78.5 Hyperlipidemia, unspecified; E03.9 Hypothyroidism, unspecified; K21.9 Gastro-esophageal reflux disease without esophagitis; M48.00 Spinal stenosis, site unspecified; I20.1 Angina pectoris with documented spasm; M54.5 Low back pain; G89.29 Other chronic pain; Z88.2 Allergy status to sulfonamides
CPT/HCPCS: 36415; 74177-TC; 80048; 80053; 81003; 81015; 82272; 82784; 82941; 83516; 83690; 83735; 85025; 85610; 85730; 86140; 87045; 87046; 87177; 87205; 87209; 87324; 87338; 87449; 93005; 93010; 96361; 96365; 96375; 96376; 99285-25; G0378; J7030

== ENCOUNTER 2018-08-19 17:40 | Emergency (ER) | payer OTHER ==
--- NOTE | 2018-08-19 17:50 | PDOC ---
History of Present Illness - General Stated Complaint: DIZZINESS Time Seen by Provider: 08/19/18 17:50 - History of Present Illness Initial Comments: 08/19/18 17:56 Ms. Phipps is a 73 yo female w/ pmh of hypothyroidism, colitis, HTN, HLD, and cdif in the past who presents for evaluation of noted confusion at home. Neighbors reports she was complaining of dizziness and incorrectly stating her age and the year. Patient reports that she "was joking" however cannot clearly remember the event. EMS was called. Patient alert and oriented on presentation and denies further symptoms at this time. The patient denies chest pain, shortness of breath, and headache. Denies fever, chills, nausea, vomit, diarrhea and constipation. Denies dysuria, frequency, urgency and hematuria. tPA Exclusion Checklist 0-3hr - Time Elapsed Date last known well: 08/19/18 Time last known well: 16:00 Elaspsed time: Day(s) and 4 Hour(s) and 27 Minutes - Thrombolytic Therapy Candidate Is the patient eligible for Thrombolytic Therapy?: No - Exclusion Criteria 0-3hr SBP greater than 185 or DBP greater than 110mmHg despite tx: No Recent IC/spinal surgery,head trauma or stroke w/in last 3mo: No Hx of previous IC hemorrhage, IC neoplasm, AVM or aneurysm: No Active internal bleeding: No Blding diathesis(low plt ct, inc PTT,INR>1.7 or use of NOAC): No Symptoms suggest subarachnoid hemorrhage: No CT demonstrates multilobar infarct(>1/3 cerebral hemiphere): No Arterial puncture at noncompressible site in previous 7 days: No Blood glucose concentration less than 50mg/dL (2.7mmol/L): No - Relative Exclusion Criteria 0-3h Life expectancy <1yr/severe co-morbid illness/STONE REPAIRER on admit: No : No Patient/family refused: No Rapid improvement: Yes Stroke severity too mild: Yes Recent acute DE (w/in previous 3 months): No Seizure at onset with postictal residual neuro impairments: No Major surgery or serious trauma w/in previous 14 days: No Recent GI or hemorrhage (w/in previous 21 days): No - Ineligibility reason(s) Reasons No tPA given: See reason(s) noted above NIH Stroke Scale - Last Known Well Date/Time & Onset Date Last Known Well: 08/19/18 Time Last Known Well: 16:00 - Initial Evaluation Level of consciousness: Alert Ask patient the month and their age: Answers both correctly Ask patient to open & close eyes; make fist and let go: Obeys both correctly Best gaze (horizontal eye movement): Normal Visual field testing: No visual field loss Facial paresis (Show teeth/raise eyebrows/close eyes tight): Normal symmetrical movement Motor Function: Left Arm: Normal Motor Function: Right Arm: Normal (extends arm 90 (or 45) degrees for 10 seconds without drift Motor Function: Left Leg: Normal (extends leg 30 degrees for 5 seconds without drift) Motor Function: Right Leg: Normal (extends leg 30 degrees for 5 seconds without drift) Limb Ataxia: No ataxia Sensory(Use pinprick test arms,legs,trunk,face/side to side): Normal Best language (Describe picture, name items, read sentences): No Aphasia Dysarthria (read several words): Normal articulation Extinction and Inattention: No abnormality - Total Score NIH Stroke Scale Score: 0 Past History - Past Medical History Allergies/Adverse Reactions: Allergies Allergy/AdvReac Type Severity Reaction Status Date / Time Sulfa (Sulfonamide Allergy Rash Verified 08/19/18 17:54 Antibiotics) sulfamethoxazole Allergy Verified 08/19/18 17:54 [From Bactrim] trimethoprim [From Bactrim] Allergy Verified 08/19/18 17:54 Home Medications: Ambulatory Orders Calcium Carbonate/Vitamin D3 [Calcium 250-D Tablet] 1 each PO DAILY 02/05/16 Diclofenac Potassium [Zipsor] 50 mg PO TID 02/05/16 Isosorbide Mononitrate [Imdur -] 30 mg PO DAILY 02/05/16 Levothyroxine [Synthroid -] 50 mcg PO DAILY 02/05/16 Metoprolol Tartrate [Lopressor -] 25 mg PO BID 02/05/16 [place]-3 Fatty Acids [[place]-3] 1,000 mg PO QID 02/05/16 Oxycodone HCl/Acetaminophen [Percocet 5-325 mg Tablet] 1 - 2 tab PO PRN Pregabalin [Lyrica] 100 mg PO TID 02/05/16 Simvastatin 20 mg PO DAILY 02/05/16 Zolpidem Tartrate [Ambien] 10 mg PO DAILY 02/05/16 Cephalexin Monohydrate [Keflex -] 500 mg PO BID #10 capsule 10/04/17 Cholestyramine/Aspartame [Questran Light Packet -] 2 gm PO DAILY@1500 #30 packet 10/04/17 Lactobacillus Acidophilus [Acidophilus Lactobacillus] 1 each PO DAILY #14 capsule 10/04/17 Anemia: Yes (childhood) Asthma: No Cancer: No Cardiac Disorders: Yes (OCCAS CHEST TIGHTNESS/PALPITATIONS) CVA: No COPD: No CHF: No Dementia: No Diabetes: No GI Disorders: Yes (COLITIS, GERD, c-diff, esophgeal spasms-difficulty swallowing ) Disorders: No HTN: Yes Hypercholesterolemia: Yes Liver Disease: No Seizures: No Thyroid Disease: Yes (hypothroid) - Surgical History Abdominal Surgery: No Appendectomy: Yes Cardiac Surgery: No Cholecystectomy: No Lung Surgery: No Neurologic Surgery: Yes (BACK SX - 2011 AND 2013) Orthopedic Surgery: Yes (DARCY KNEE REPLACEMENTS, foot sx) - Immunization History Immunization Up to Date: Yes - Suicide/Smoking/Psychosocial Hx Smoking History: Former smoker Have you smoked in the past 12 months: No If you are a former smoker, when did you quit?: 30YRS AGO Hx Alcohol Use: No Drug/Substance Use Hx: No Substance Use Type: None Hx Substance Use Treatment: No Review of Systems - Review of Systems Comments:: 08/19/18 18:04 GENERAL/CONSTITUTIONAL: No fever or chills. No weakness. HEAD, EYES, EARS, NOSE AND THROAT: No change in vision. No ear pain or discharge. No sore throat. CARDIOVASCULAR: No chest pain or shortness of breath RESPIRATORY: No cough, wheezing, or hemoptysis. GASTROINTESTINAL: No nausea, vomiting, diarrhea or constipation. GENITOURINARY: No dysuria, frequency, or change in urination. MUSCULOSKELETAL: No joint or muscle swelling or pain. No neck or back pain. SKIN: No rash NEUROLOGIC: +Dizziness upon going up/down stairs prior to presentation. Patient also reports she cannot clearly recall events preceding arrival. No headache, vertigo, or change in strength/sensation. ENDOCRINE: No increased thirst. No abnormal weight change HEMATOLOGIC/LYMPHATIC: No anemia, easy bleeding, or history of blood clots. ALLERGIC/IMMUNOLOGIC: No hives or skin allergy. *Physical Exam - Physical Exam Comments: 04/13/19 18:04 GENERAL: Awake, alert, and fully oriented, in no acute distress HEAD: No signs of trauma, normocephalic, atraumatic EYES: PERRLA, EOMI, sclera anicteric, conjunctiva clear ENT: Auricles normal inspection, hearing grossly normal, nares patent, oropharynx clear without exudates. Moist mucosa NECK: Normal ROM, supple, no lymphadenopathy, JVD, or masses LUNGS: No distress, speaks full sentences, clear to auscultation bilaterally HEART: Regular rate and rhythm, normal S1 and S2, no murmurs, rubs or gallops, peripheral pulses normal and equal bilaterally. ABDOMEN: Soft, nontender, normoactive bowel sounds. No guarding, no rebound. No masses EXTREMITIES: Normal inspection, Normal range of motion, no edema. No clubbing or cyanosis. NEUROLOGICAL: Cranial nerves II through XII grossly intact. Normal speech, normal gait, no focal sensorimotor deficits SKIN: Warm, Dry, normal turgor, no rashes or lesions noted. ED Treatment Course - LABORATORY CBC & Chemistry Diagram: 08/19/18 17:55 08/19/18 17:55 - ADDITIONAL ORDERS Additional order review: Laboratory Results 08/19/18 17:45 POC Glucometer 104 08/19/18 17:45 POC Glucometer 104 - RADIOLOGY Radiology Studies Ordered: Category Date Time Status HEAD CT (STROKE) [CT] Stat CT Scan 08/19/18 17:48 Ordered Medical Decision Making - Medical Decision Making 08/19/18 18:37 Ms. Phipps is a 73 yo female w/ pmh as described who presents for evaluation of symptoms of confusion w/ dizziness concerning for neurological vs. infectious vs. tox etiology. Patient evaluated for r/o TIA w/ labs as below plus EKG plus CXR. Patient very well appearing upon arrival however CT ordered for further evaluation (negative). Discussed patient with daughter (Fadumo - [phone]) who reports patient has had similar episodes in the past after taking prescription opioids. Daughter talked to patient during episode and reports she was not confused however was very agitated at that time. Patient has reportedly been to rehab multiple times for opioids however has been taking them recently for her chronic back pain. Upon repeat interview patient confirms she took single percocet this AM. 08/19/18 20:02 Patient continues to be well appearing. Labs grossly wnl as below. Opioid use confirmed on Utox. Suspect percocet use as cause of AMS. No concern for acute process at this time. Discharging to home. Laboratory Results - last 24 hr 08/19/18 08/19/18 08/19/18 17:45 17:55 17:55 WBC 7.4 RBC 4.31 Hgb 13.2 Hct 39.4 MCV 91.4 MCH 30.5 MCHC 33.4 RDW 13.9 Plt Count 217 MPV 10.4 Absolute Neuts (auto) 5.0 Neutrophils % 67.6 Lymphocytes % 22.7 D Monocytes % 8.2 Eosinophils % 0.7 Basophils % 0.8 Nucleated RBC % 0 PT with INR 12.10 INR 1.03 Sodium Potassium Chloride Carbon Dioxide Anion Gap BUN Creatinine Creat Clearance w eGFR POC Glucometer 104 Random Glucose Calcium Total Bilirubin AST ALT Alkaline Phosphatase Creatine Kinase Troponin I Total Protein Albumin Triglycerides Cholesterol Total LDL Cholesterol HDL Cholesterol TSH Urine Color Urine Appearance Urine pH Ur Specific [place] Urine Protein Urine Glucose (UA) Urine Ketones Urine Blood Urine Nitrite Urine Bilirubin Urine Urobilinogen Ur Leukocyte Esterase Salicylates Opiates Screen Methadone Screen Acetaminophen Barbiturate Screen Phencyclidine Screen Ur Amphetamines Screen MDMA (Ecstasy) Screen Benzodiazepines Screen Cocaine Screen U Marijuana (THC) Screen 08/19/18 08/19/18 08/19/18 17:55 18:45 18:45 WBC RBC Hgb Hct MCV MCH MCHC RDW Plt Count MPV Absolute Neuts (auto) Neutrophils % Lymphocytes % Monocytes % Eosinophils % Basophils % Nucleated RBC % PT with INR INR Sodium 141 Potassium 4.4 Chloride 106 Carbon Dioxide 29 Anion Gap 7 L BUN 26 H Creatinine 0.9 Creat Clearance w eGFR 61.55 POC Glucometer Random Glucose 110 H Calcium 8.8 Total Bilirubin 0.3 AST 18 ALT 18 Alkaline Phosphatase 60 Creatine Kinase 130 Troponin I < 0.02 Total Protein 7.0 Albumin 4.2 Triglycerides 68 Cholesterol 148 Total LDL Cholesterol 58 HDL Cholesterol 81 H TSH 0.94 Urine Color Yellow Urine Appearance Cloudy Urine pH 6.5 D Ur Specific [place] 1.023 Urine Protein Negative Urine Glucose (UA) Negative Urine Ketones Negative Urine Blood Negative Urine Nitrite Negative Urine Bilirubin Negative Urine Urobilinogen 1.0 Ur Leukocyte Esterase Negative Salicylates Opiates Screen Positive A* Methadone Screen Negative Acetaminophen Barbiturate Screen Negative Phencyclidine Screen Negative Ur Amphetamines Screen Negative MDMA (Ecstasy) Screen Negative Benzodiazepines Screen Negative Cocaine Screen Negative U Marijuana (THC) Screen Negative 08/19/18 18:50 WBC RBC Hgb Hct MCV MCH MCHC RDW Plt Count MPV Absolute Neuts (auto) Neutrophils % Lymphocytes % Monocytes % Eosinophils % Basophils % Nucleated RBC % PT with INR INR Sodium Potassium Chloride Carbon Dioxide Anion Gap BUN Creatinine Creat Clearance w eGFR POC Glucometer Random Glucose Calcium Total Bilirubin AST ALT Alkaline Phosphatase Creatine Kinase Troponin I Total Protein Albumin Triglycerides Cholesterol Total LDL Cholesterol HDL Cholesterol TSH Urine Color Urine Appearance Urine pH Ur Specific [place] Urine Protein Urine Glucose (UA) Urine Ketones Urine Blood Urine Nitrite Urine Bilirubin Urine Urobilinogen Ur Leukocyte Esterase Salicylates < 1.7 L Opiates Screen Methadone Screen Acetaminophen < 2.0 L Barbiturate Screen Phencyclidine Screen Ur Amphetamines Screen MDMA (Ecstasy) Screen Benzodiazepines Screen Cocaine Screen U Marijuana (THC) Screen *DC/Admit/Observation/Transfer Diagnosis at time of Disposition: Altered mental status Qualifiers: Altered mental status type: unspecified Qualified Code(s): R41.82 - Altered mental status, unspecified - Discharge Dispostion Disposition: HOME - Referrals Referrals: Lenin Meza MD [Primary Care Provider] - - Patient Instructions Printed Discharge Instructions: DI for Prescription Opioid Use Additional Instructions: You were evaluated today in the ED for your symptoms. We believe they were caused by your percocet use. Please follow-up with primary care provider in 1-2 days for further evaluation. Return to ER if any fever, chills, return of confusion, or other concerning symptoms. - Post Discharge Activity
[2018-08-19 17:54] VITALS: TEMP 97.9; BMI 26.3
--- NOTE | 2018-08-19 17:55 | PDOC ---
Attending Attestation - HPI HPI: This patient is a 73 year old female with PMHx of hypothyroidism, colitis, HTN , HLD, and c-dif in the past who was BIBA to the ED after a bout of confusion. Patient states that this morning she was feeling dizzy as she was coming down the stairs to visit her landlord. Her landlord noted that she seemed to be a little confused and was concerned so she called her daughter who then suggested she go to the ER. Patient alert and oriented on presentation and denies further symptoms at this time. The patient denies chest pain, shortness of breath, and headache. Denies fever, chills, nausea, vomit, diarrhea and constipation. Denies dysuria, frequency, urgency and hematuria. 08/19/18 20:02 - Physicial Exam PE: GENERAL: Awake, alert, and fully oriented x3, in no acute distress HEAD: No signs of trauma EYES: PERRLA, EOMI, sclera anicteric, conjunctiva clear LUNGS: Breath sounds equal, clear to auscultation bilaterally. No wheezes, and no crackles HEART: Regular rate and rhythm, normal S1 and S2, no murmurs, rubs or gallops ABDOMEN: Soft, nontender, normoactive bowel sounds. No guarding, no rebound. No masses EXTREMITIES: Normal range of motion, no edema. No clubbing or cyanosis. No cords, erythema, or tenderness NEUROLOGICAL: Cranial nerves II through XII grossly intact. Normal speech, normal gait SKIN: Warm, Dry, normal turgor, no rashes or lesions noted. <Lianet Brantley - Last Filed: 08/19/18 20:02> - Resident Resident Name: Carlos Manuel Thomson - Medical Decision Making 08/19/18 20:49 Pt presents to the ED after neighbors called EMS for altered mental status. Patient is now alert and oriented and neurologically intact and ambulatory in the ED with a normal gait. Daughter reports that the patient abuses percoset recreationally. Patient admits to percoset use. All other tests are negative. Will discharge home. <Janel Arcos - Last Filed: 08/19/18 20:56> Attestations - Attestations 08/19/18 20:04 Documentation prepared by Lianet Brantley, acting as expert medical writer for Janel Arcos MD. <Lianet Brantley - Last Filed: 08/19/18 20:02>
[2018-08-19] MEDS ORDERED: SODIUM CHLORIDE 1,000 ML IV SCH (18:00)
[2018-08-19 18:05] LABS: BASO % 0.8 % (0-2.0); EOS % 0.7 % (0-4.5); HEMATOCRIT 39.4 % (32.4-45.2); HEMOGLOBIN 13.2 GM/dL (10.7-15.3); LYMPH % 22.7 % (8-40); MCH 30.5 pg (25.7-33.7); MCHC 33.4 g/dl (32.0-36.0); MEAN CELL VOLUME 91.4 fl (80-96); MEAN PLT VOLUME 10.4 fl (7.5-11.1); MONO % 8.2 % (3.8-10.2); NEUT % 67.6 % (42.8-82.8); PLATELET COUNT 217 K/MM3 (134-434); RBC 4.31 M/mm3 (3.60-5.2); RDW 13.9 % (11.6-15.6); WHITE BLOOD COUNT 7.4 K/mm3 (4.0-10.0)
[2018-08-19 18:30] LABS: INR 1.03 (0.83-1.09); PROTHROMBIN TIME (PATIENT) 12.1 SEC (9.7-13.0)
[2018-08-19 18:46] LABS: ALBUMIN 4.2 g/dl (3.4-5.0); ALK PHOS 60 U/L (45-117); ANION GAP 7 MMOL/L (8-16); BILIRUBIN,TOTAL 0.3 mg/dL (0.2-1); BLOOD UREA NITROGEN 26 mg/dL (7-18); CALCIUM 8.8 mg/dL (8.5-10.1); CHLORIDE 106 mmol/L (98-107); CHOLESTEROL 148 mg/dL (50-200); CO2 29 mmol/L (21-32); CREATININE 0.9 mg/dL (0.55-1.3); GLUCOSE,RANDOM 110 mg/dL (74-106); HDL CHOLESTEROL 81 mg/dL (40-60); POTASSIUM 4.4 mmol/L (3.5-5.1); SGOT/AST 18 U/L (15-37); SGPT/ALT 18 U/L (13-61); SODIUM 141 mmol/L (136-145); TRIGLYCERIDES 68 mg/dL (0-150)
[2018-08-19] MEDS ORDERED: METOCLOPRAMIDE HCL INJECTION 10 MG/2 ML VIAL IVPB ONE (18:55)
[2018-08-19 19:11] LABS: PH,URINE 6.5 (5.0-8.0); URINE APPEARANCE CLOUDY; URINE BILIRUBIN NEGATIVE (NEGATIVE); URINE COLOR YELLOW; URINE GLUCOSE (UA) NEGATIVE (NEGATIVE); URINE KETONE NEGATIVE (NEGATIVE); URINE LEUK ESTERASE NEGATIVE (NEGATIVE); URINE NITRITE NEGATIVE (NEGATIVE); URINE PROTEIN NEGATIVE (NEGATIVE)
[2018-08-19 20:06] LABS: COCAINE, UR NEGATIVE ng/ml (CUTOFF=300); METHADONE, UR NEGATIVE ng/ml (CUTOFF=300); PHENCYCLIDINE,URINE NEGATIVE ng/ml (CUTOFF=25); URINE AMPHETAMINES NEGATIVE ng/ml (CUTOFF=500); URINE BARBITURATES NEGATIVE ng/ml (CUTOFF=200); URINE BENZODIAZEPINES NEGATIVE ng/ml (CUTOFF=200)
[2018-08-19 20:11] LABS: OPIATES, URI POSITIVE ng/ml (CUTOFF=300)
[2018-08-19 21:41] VITALS: BP 136/78; PULSE 82
--- NOTE | 2018-08-21 10:33 | EKG ---
Test Reason : Blood Pressure : / mmHG Vent. Rate : 079 BPM Atrial Rate : 079 BPM P-R Int : 156 ms QRS Dur : 084 ms QT Int : 384 ms P-R-T Axes : 051 -18 024 degrees QTc Int : 440 ms NORMAL SINUS RHYTHM POSSIBLE LEFT ATRIAL ENLARGEMENT BORDERLINE ECG WHEN COMPARED WITH ECG OF 01-OCT-2017 02:33, PREMATURE VENTRICULAR COMPLEXES ARE NO LONGER PRESENT Confirmed by JESSIE BEE, JASMIN ([id number]) on 08/21/2018 10:33:18 AM Referred By: Confirmed By:JASMIN ROMAN MD
== END 2018-08-19 21:47 | disposition home or self-care (01) ==
LOC: JER 17:40
DX: R41.82 Altered mental status, unspecified (principal); I10 Essential (primary) hypertension; E78.5 Hyperlipidemia, unspecified; E03.9 Hypothyroidism, unspecified; Z86.19 Personal history of other infectious and parasitic diseases; Z86.79 Personal history of other diseases of the circulatory system; Z88.2 Allergy status to sulfonamides; Z88.8 Allergy status to other drugs, medicaments and biological substances
CPT/HCPCS: 36415; 70450-TC; 80053; 80307; 81003; 82465; 82550; 82962; 83718; 83721; 84443; 84478; 84484; 85025; 85610; 86850; 86900; 86901; 93005; 93010; 99285-25; J7030

== ENCOUNTER 2021-03-31 22:23 | Observation (INO) | payer OTHER ==
[2021-03-31] MEDS ORDERED: ACETAMINOPHEN 500 MG TABLET (FP) PO ONE (23:09)
[2021-03-31 23:18] LABS: BASO % 0.3 % (0-2.0); EOS % 2.5 % (0-4.5); HEMATOCRIT 35.7 % (32.4-45.2); HEMOGLOBIN 12.2 GM/dL (10.7-15.3); LYMPH % 27.5 % (8-40); MCH 28.6 pg (25.7-33.7); MCHC 34.1 g/dl (32.0-36.0); MEAN CELL VOLUME 83.8 fl (80-96); MEAN PLT VOLUME 9.7 fl (7.5-11.1); MONO % 13.3 % (3.8-10.2); NEUT % 56.4 % (42.8-82.8); PLATELET COUNT 212 10^3/uL (134-434); RBC 4.25 M/mm3 (3.60-5.2); RDW 14.5 % (11.6-15.6); WHITE BLOOD COUNT 6.9 K/mm3 (4.0-10.0)
[2021-03-31 23:24] LABS: INR 1.1 (0.83-1.09); PROTHROMBIN TIME (PATIENT) 12.3 SEC (9.7-13.0)
[2021-03-31] MEDS ORDERED: ACETAMINOPHEN 325 MG TABLET (FP) ONE (23:40)
[2021-03-31] MEDS ORDERED: morphine CARPU-JECT 4 MG/1 ML DISP.SYRIN IVPUSH ONE (23:42)
[2021-04-01] MEDS ORDERED: morphine SULFATE 4 MG/ML VIAL ONE ×2 (00:07→09:10)
[2021-04-01 00:08] LABS: ALBUMIN 3.7 g/dl (3.4-5.0); ALK PHOS 117 U/L (45-117); ANION GAP 5 MMOL/L (8-16); BILIRUBIN,TOTAL 0.4 mg/dL (0.2-1); CALCIUM 8.1 mg/dL (8.5-10.1); CHLORIDE 109 mmol/L (98-107); CO2 32 mmol/L (21-32); CREATININE 0.9 mg/dL (0.55-1.3); GLUCOSE,RANDOM 85 mg/dL (74-106); SGOT/AST 18 U/L (15-37); SGPT/ALT 16 U/L (13-61); SODIUM 146 mmol/L (136-145); TOT PROT 6.6 g/dl (6.4-8.2)
[2021-04-01 03:39] LABS: EPI CELLS 7 /uL (0-25.1); HYALINE CASTS 0 /uL (0-3.1); PH,URINE 5.5 (5.0-8.0); URINE APPEARANCE CLEAR; URINE BACTERIA >9,000 /uL (0-1359); URINE BILIRUBIN NEGATIVE (NEGATIVE); URINE COLOR YELLOW; URINE GLUCOSE (UA) NEGATIVE (NEGATIVE); URINE KETONE NEGATIVE (NEGATIVE); URINE LEUK ESTERASE 1+ (NEGATIVE); URINE NITRITE POSITIVE (NEGATIVE); URINE PROTEIN NEGATIVE (NEGATIVE); URINE RBC 1 /uL (0-23.9); URINE UROBILINOGEN 0.2 mg/dL (0.2-1.0); URINE WBC 88 /uL (0-25.8)
[2021-04-01] MEDS ORDERED: ACETAMINOPHEN 325 MG TABLET (FP) PO PRN (04:10)
[2021-04-01] MEDS ORDERED: CEFTRIAXONE 1 GM/50 ML BAG ONE (04:54)
[2021-04-01] MEDS: CEFTRIAXONE 1 GM in DEXTROSE 5%-WATER - 50 ML IVPB SCH (05:00)
[2021-04-01 06:04] LABS: BASO % 0.5 % (0-2.0); EOS % 3.1 % (0-4.5); HEMATOCRIT 35.9 % (32.4-45.2); LYMPH % 27.4 % (8-40); MCH 28.4 pg (25.7-33.7); MCHC 33.3 g/dl (32.0-36.0); MEAN CELL VOLUME 85.2 fl (80-96); MEAN PLT VOLUME 10.1 fl (7.5-11.1); MONO % 12.9 % (3.8-10.2); NEUT % 56.1 % (42.8-82.8); PLATELET COUNT 191 10^3/uL (134-434); RBC 4.21 M/mm3 (3.60-5.2); RDW 14.1 % (11.6-15.6); WHITE BLOOD COUNT 6.4 K/mm3 (4.0-10.0)
[2021-04-01 06:43] LABS: ALBUMIN 3.3 g/dl (3.4-5.0); BILIRUBIN,TOTAL 0.6 mg/dL (0.2-1); BLOOD UREA NITROGEN 14.5 mg/dL (7-18); CALCIUM 8.2 mg/dL (8.5-10.1); CREATININE 0.8 mg/dL (0.55-1.3); MAGNESIUM 1.8 mg/dL (1.8-2.4); PHOSPHOROUS 4.2 mg/dL (2.5-4.9)
[2021-04-01] MEDS ORDERED: MAGNESIUM OXIDE 400 MG TABLET (FP) PO ONE (06:52)
[2021-04-01] MEDS ORDERED: POTASSIUM CHLORIDE TABS 20 MEQ TABLET.ER (FP) PO ONE (06:52)
[2021-04-01] MEDS ORDERED: KCL 10 MEQ IVPB 10 MEQ/100 ML INFUS.BAG IVPB SCH (07:00)
[2021-04-01] MEDS ORDERED: KCL 10 MEQ IVPB 10 MEQ/100 ML INFUS.BAG IVPB ONE (08:44)
[2021-04-01] MEDS ORDERED: ACETAMINOPHEN 1000 MG/100 ML VIAL IVPB PRN (08:52)
[2021-04-01] MEDS ORDERED: morphine SULFATE 4 MG/ML VIAL IVPUSH ONE (09:00)
[2021-04-01] MEDS ORDERED: ALPRAZolam 1 MG TABLET ONE (09:10)
[2021-04-01] MEDS ORDERED: PT OWN MED DRAWER 7, Y5N ONE (09:10)
[2021-04-01] MEDS ORDERED: ALPRAZolam 1 MG TABLET PO ONE (09:15)
[2021-04-01] MEDS: LEVOTHYROXINE NA 75 MCG TABLET (FP) PO SCH (09:22)
[2021-04-01] MEDS ORDERED: amLODIPine BESYLATE 5 MG TABLET (FP) PO SCH (10:00)
[2021-04-01] MEDS ORDERED: PANTOPRAZOLE SODIUM 40 MG VIAL IVPUSH SCH (10:00)
[2021-04-01] MEDS ORDERED: CYCLOBENZAPRINE HCL 10 MG TABLET (FP) PO ONE (10:02)
[2021-04-01] MEDS ORDERED: CYCLOBENZAPRINE HCL 10 MG TABLET (FP) ONE (10:44)
[2021-04-01] MEDS ORDERED: amLODIPine BESYLATE 5 MG TABLET (FP) ONE (10:44)
[2021-04-01] MEDS ORDERED: ENOXAPARIN NA (PORCINE) 40 MG/0.4 ML DISP.SYRIN SQ ONE (10:45)
[2021-04-01] MEDS ORDERED: metoPROLOL SUCCINATE 25 MG TAB.SR.24H (FP) ONE (10:45)
[2021-04-01] MEDS: metoPROLOL SUCCINATE 25 MG TAB.SR.24H (FP) PO SCH (10:49)
[2021-04-01] MEDS: ENOXAPARIN NA (PORCINE) 40 MG/0.4 ML DISP.SYRIN SQ SCH (10:49)
[2021-04-01] MEDS: LIDOCAINE 5% TOPICAL PATCH TP SCH (10:50)
[2021-04-01] MEDS ORDERED: LIDOCAINE 5% TOPICAL PATCH ONE (10:51)
[2021-04-01] MEDS: oxyCODONE HCL 5 MG TABLET PO ONE ×2 (11:50→11:58)
[2021-04-01] MEDS ORDERED: SODIUM CHLORIDE 0.45% 1,000 ML IV SCH (13:15)
[2021-04-01] MEDS ORDERED: METOCLOPRAMIDE HCL INJECTION 10 MG/2 ML VIAL IVPUSH PRN (14:56)
[2021-04-01] MEDS: oxyCODONE HCL 5 MG TABLET PO PRN ×2 (16:20→23:55)
[2021-04-01] MEDS: METOCLOPRAMIDE HCL INJECTION 10 MG/2 ML VIAL IVPUSH SCH ×2 (16:21→21:53)
[2021-04-01 17:37] VITALS: BMI 25.5
[2021-04-01] MEDS: PANTOPRAZOLE 40 MG TABLET PO SCH (21:54)
[2021-04-01] MEDS ORDERED: LIDOCAINE PATCH REMOVAL MC SCH (22:00)
[2021-04-01] MEDS ORDERED: ATORVASTATIN CA 40 MG TABLET (FP) PO SCH (22:00)
[2021-04-01] MEDS ORDERED: MELATONIN 5 MG TABLETS PO PRN (22:05)
[2021-04-02] MEDS: LEVOTHYROXINE NA 75 MCG TABLET (FP) PO SCH (06:01)
[2021-04-02] MEDS: METOCLOPRAMIDE HCL INJECTION 10 MG/2 ML VIAL IVPUSH SCH ×2 (06:01→13:10)
[2021-04-02 08:16] VITALS: TEMP 98.1
[2021-04-02] MEDS ORDERED: cefTRIAXone SODIUM 1 GM VIAL ONE (08:57)
[2021-04-02] MEDS ORDERED: DEXTROSE 5%-WATER - 50 ML IVPB ONE (08:58)
[2021-04-02] MEDS: LIDOCAINE 5% TOPICAL PATCH TP SCH (09:18)
[2021-04-02] MEDS: ENOXAPARIN NA (PORCINE) 40 MG/0.4 ML DISP.SYRIN SQ SCH (09:21)
[2021-04-02] MEDS: PANTOPRAZOLE 40 MG TABLET PO SCH (09:23)
[2021-04-02] MEDS: oxyCODONE HCL 5 MG TABLET PO PRN (09:23)
[2021-04-02] MEDS: metoPROLOL SUCCINATE 25 MG TAB.SR.24H (FP) PO SCH (09:23)
[2021-04-02] MEDS: CEFTRIAXONE 1 GM in DEXTROSE 5%-WATER - 50 ML IVPB SCH (09:24)
[2021-04-02] MEDS ORDERED: CYCLOBENZAPRINE HCL 5 MG TABLET PO ONE (09:37)
[2021-04-02 09:52] LABS: BLOOD UREA NITROGEN 10.9 mg/dL (7-18); CALCIUM 8.4 mg/dL (8.5-10.1); CREATININE 0.6 mg/dL (0.55-1.3); PHOSPHOROUS 3.3 mg/dL (2.5-4.9)
[2021-04-02] MEDS ORDERED: SUCRALFATE 1 GM/10 ML UNIT DOSE CUPS PO SCH (11:00)
[2021-04-02] MEDS ORDERED: PT OWN MED DRAWER 7, Y5N ONE (12:55)
[2021-04-02 14:22] VITALS: BP 129/78; PULSE 83
== END 2021-04-02 16:30 | disposition home or self-care (01) ==
LOC: JER 22:23 → JERBED 23:07 → INTOOBSV 23:07 → UNDOADMOB 23:07 → JERBED 04-01 13:23 → J4W 04-01 14:51
PROVIDERS: ADMIT Internal Medicine; ATTEND Internal Medicine
PROC: 3E033NZ Introduction of Analgesics, Hypnotics, Sedatives into Peripheral Vein, Percutaneous Approach (ICD-10-PCS; principal; 2021-04-01)
PROC: 3E03329 Introduction of Other Anti-infective into Peripheral Vein, Percutaneous Approach (ICD-10-PCS; 2021-04-01)
PROC: 3E023GC Introduction of Other Therapeutic Substance into Muscle, Percutaneous Approach (ICD-10-PCS; 2021-04-01)
PROC: 3E033GC Introduction of Other Therapeutic Substance into Peripheral Vein, Percutaneous Approach (ICD-10-PCS; 2021-04-01)
PROC: 3E0337Z Introduction of Electrolytic and Water Balance Substance into Peripheral Vein, Percutaneous Approach (ICD-10-PCS; 2021-04-01)
DX: R07.9 Chest pain, unspecified (principal); E78.00 Pure hypercholesterolemia, unspecified; K21.9 Gastro-esophageal reflux disease without esophagitis; I25.10 Atherosclerotic heart disease of native coronary artery without angina pectoris; I11.9 Hypertensive heart disease without heart failure; K52.89 Other specified noninfective gastroenteritis and colitis; G89.29 Other chronic pain; M54.9 Dorsalgia, unspecified; M51.86 Other intervertebral disc disorders, lumbar region; K22.70 Barrett's esophagus without dysplasia; Z87.891 Personal history of nicotine dependence; Z91.018 Allergy to other foods; Z91.011 Allergy to milk products; Z82.49 Family history of ischemic heart disease and other diseases of the circulatory system
CPT/HCPCS: 36415; 71045-TC-FY; 71250-TC; 80048; 80053; 80061; 81003; 82550; 82553; 83735; 84100; 84443; 84484; 85025; 85610; 85730; 87086; 87186; 93005; 93010; 93306-TC; 93970-TC; 96361; 96365; 96367; 96372; 96375; 96376; 99285-25; C9803; G0378; J0131; U0003; U0005

== ENCOUNTER 2021-05-20 04:24 | Day surgery (SDC) | payer OTHER ==
[2021-05-15 16:55] VITALS: BMI 24.3
[~2021-05-20 04:24] MED LIST: BUPIVACAINE HCL/PF 0.5% (5MG/ML) 10 ML VIAL IJ ONE; LIDOCAINE HCL 1%, 10 MG/ML (20ML VIAL) NR ONE
[2021-05-20] MEDS ORDERED: LIDOCAINE HCL 1%, 10 MG/ML (20ML VIAL) ONE (07:33)
[2021-05-20] MEDS ORDERED: BUPIVACAINE HCL/PF 0.5% (5MG/ML) 10 ML VIAL ONE (07:34)
[2021-05-20] MEDS ORDERED: PROPOFOL 20 ML ONE ×2 (08:02)
[2021-05-20] MEDS ORDERED: MIDAZOLAM HCL 2 MG/2 ML SINGLE DOSE VIAL ONE (08:02)
[2021-05-20] MEDS ORDERED: KETAMINE HCL 200 MG/20 ML VIAL ONE (08:20)
[2021-05-20] MEDS ORDERED: BUPIVACAINE HCL/PF 0.5% (5MG/ML) 10 ML VIAL IJ ONE ×2 (08:31)
[2021-05-20] MEDS ORDERED: LIDOCAINE HCL 1%, 10 MG/ML (20ML VIAL) NR ONE ×2 (08:31)
[2021-05-20] MEDS ORDERED: oxyCODONE HCL 5 MG TABLET PO PRN (09:23)
[2021-05-20] MEDS ORDERED: LACTATED RINGERS SOLUTION 1,000 ML IV SCH (09:30)
[2021-05-20 10:04] VITALS: TEMP 98
[2021-05-20 11:02] VITALS: BP 142/80; PULSE 78
== END 2021-05-20 11:03 | disposition home or self-care (01) ==
LOC: JASU-SURG 04:24
PROVIDERS: ATTEND Orthopaedic Surgery
PROC: 0LN80ZZ Release Left Hand Tendon, Open Approach (ICD-10-PCS; principal; 2021-05-20 08:00)
DX: M65.342 Trigger finger, left ring finger (principal)

== ENCOUNTER 2022-01-12 13:52 | Emergency (ER) | payer OTHER ==
[2022-01-12 14:08] VITALS: RESP 18; TEMP 98.2; BMI 25.0
[2022-01-12 16:57] LABS: BASO % 0.4 % (0-2.0); EOS % 3.4 % (0-4.5); HEMATOCRIT 34.9 % (32.4-45.2); HEMOGLOBIN 11.8 GM/dL (10.7-15.3); MCH 30.5 pg (25.7-33.7); MCHC 33.9 g/dl (32.0-36.0); MEAN CELL VOLUME 89.9 fl (80-96); MEAN PLT VOLUME 9.4 fl (7.5-11.1); NEUT % 66.2 % (42.8-82.8); PLATELET COUNT 203 10^3/uL (134-434); RBC 3.88 M/mm3 (3.60-5.2); RDW 15.5 % (11.6-15.6)
[2022-01-12 17:17] LABS: CALCIUM 8.9 mg/dL (8.5-10.1)
[2022-01-12 17:18] LABS: BLOOD UREA NITROGEN 7.5 mg/dL (7-18)
[2022-01-12 17:21] LABS: CREATININE 0.8 mg/dL (0.55-1.3)
[2022-01-12 17:23] LABS: BILIRUBIN,TOTAL 0.6 mg/dL (0.2-1); TOT PROT 6.2 g/dl (6.4-8.2)
[2022-01-12 17:32] LABS: ALBUMIN 3.5 g/dl (3.4-5.0)
[2022-01-12] MEDS ORDERED: POTASSIUM CHLORIDE TABS 20 MEQ TABLET.ER (FP) PO ONE ×2 (18:15→18:22)
[2022-01-12 20:55] VITALS: BP 160/91; PULSE 69
== END 2022-01-12 21:38 | disposition home or self-care (01) ==
LOC: JER 13:52
DX: M79.89 Other specified soft tissue disorders (principal)
CPT/HCPCS: 36415; 71045-TC-FY; 74177-TC; 80053; 83690; 84484; 85025; 93005; 93010; 93970-TC; 99285-25; Q9967

== ENCOUNTER 2022-01-26 09:37 | Inpatient (IN) | payer OTHER ==
[2022-01-26 09:55] VITALS: BMI 26.3
[2022-01-26] MEDS ORDERED: SODIUM CHLORIDE 0.9% 500 ML INFUS.BAG IV ONE (10:07)
[2022-01-26] MEDS ORDERED: ADENOSINE 6 MG/2 ML VIAL IVPUSH ONE ×6 (10:18→10:35)
[2022-01-26 11:11] LABS: BASO % 0.6 % (0-2.0); EOS % 1.7 % (0-4.5); HEMATOCRIT 44.9 % (32.4-45.2); HEMOGLOBIN 15.1 GM/dL (10.7-15.3); LYMPH % 18.4 % (8-40); MCH 30.4 pg (25.7-33.7); MCHC 33.7 g/dl (32.0-36.0); MEAN CELL VOLUME 90.3 fl (80-96); MEAN PLT VOLUME 10.1 fl (7.5-11.1); MONO % 8.6 % (3.8-10.2); NEUT % 70.7 % (42.8-82.8); PLATELET COUNT 392 10^3/uL (134-434); RBC 4.97 M/mm3 (3.60-5.2); RDW 14.9 % (11.6-15.6); WHITE BLOOD COUNT 11.2 K/mm3 (4.0-10.0)
[2022-01-26 11:25] LABS: ACTIVATED PTT 32.3 SECONDS (25.2-36.5); INR 1.03 (0.83-1.09); PROTHROMBIN TIME (PATIENT) 11.8 SEC (9.7-13.0)
[2022-01-26 11:32] LABS: CALCIUM 9.7 mg/dL (8.5-10.1)
[2022-01-26 11:36] LABS: CREATININE 1.1 mg/dL (0.55-1.3)
[2022-01-26 11:37] LABS: BILIRUBIN,TOTAL 0.7 mg/dL (0.2-1); TOT PROT 7.2 g/dl (6.4-8.2)
[2022-01-26] MEDS ORDERED: METOPROLOL TARTRATE 50 MG TABLET (FP) PO SCH (13:30)
[2022-01-26 15:02] LABS: MAGNESIUM 1.8 mg/dL (1.8-2.4)
[2022-01-26 15:05] LABS: PHOSPHOROUS 3.5 mg/dL (2.5-4.9)
[2022-01-26] MEDS: metoPROLOL SUCCINATE 25 MG TAB.SR.24H (FP) PO SCH ×2 (15:50→21:18)
[2022-01-26] MEDS ORDERED: ASPIRIN 81 MG CHEWABLE TABLETS ONE (16:13)
[2022-01-26] MEDS: ASPIRIN 81 MG CHEWABLE TABLETS PO SCH (16:15)
[2022-01-26] MEDS ORDERED: HEPARIN NA (PORCINE) 5,000 UNITS/ML 1ML VIAL IVPUSH PRN ×2 (18:39)
[2022-01-26] MEDS ORDERED: HEPARIN - 25,000 UNIT in SODIUM CHLORIDE 495 ML IV SCH (19:00)
[2022-01-26] MEDS: ATORVASTATIN CA 80 MG TABLET (FP) PO SCH (21:18)
[2022-01-26] MEDS: ACETAMINOPHEN 325 MG TABLET (FP) PO PRN (21:19)
[2022-01-26] MEDS ORDERED: ZOLPIDEM TARTRATE 5 MG TABLET PO ONE (21:22)
[2022-01-26] MEDS ORDERED: ATORVASTATIN CA 40 MG TABLET (FP) PO SCH (22:00)
[2022-01-26] MEDS ORDERED: ASPIRIN 325 MG TABLET PO ONE (23:12)
[2022-01-26] MEDS ORDERED: ONDANSETRON 4 MG/2 ML VIAL IVPUSH ONE (23:26)
[2022-01-26] MEDS ORDERED: ALPRAZolam 1 MG TABLET PO PRN (23:28)
[2022-01-26] MEDS ORDERED: ALPRAZolam 0.25 MG TABLET PO PRN (23:48)
[2022-01-27] MEDS ORDERED: oxyCODONE HCL 5 MG TABLET ONE (01:18)
[2022-01-27] MEDS: oxyCODONE HCL 5 MG TABLET PO SCH ×2 (01:30→06:49)
[2022-01-27] MEDS: LEVOTHYROXINE NA 75 MCG TABLET (FP) PO SCH (06:49)
[2022-01-27 07:30] LABS: BASO % 0.5 % (0-2.0); EOS % 2.9 % (0-4.5); HEMATOCRIT 39.4 % (32.4-45.2); LYMPH % 26.7 % (8-40); MCH 29.8 pg (25.7-33.7); MEAN CELL VOLUME 90.3 fl (80-96); MEAN PLT VOLUME 10.9 fl (7.5-11.1); MONO % 9.4 % (3.8-10.2); NEUT % 60.5 % (42.8-82.8); PLATELET COUNT 264 10^3/uL (134-434); RBC 4.37 M/mm3 (3.60-5.2); RDW 14.6 % (11.6-15.6); WHITE BLOOD COUNT 8.5 K/mm3 (4.0-10.0)
[2022-01-27 08:45] LABS: ALBUMIN 3.1 g/dl (3.4-5.0); BILIRUBIN,TOTAL 0.7 mg/dL (0.2-1); BLOOD UREA NITROGEN 13.1 mg/dL (7-18); CALCIUM 8.5 mg/dL (8.5-10.1); CREATININE 0.7 mg/dL (0.55-1.3); MAGNESIUM 1.8 mg/dL (1.8-2.4); TOT PROT 5.6 g/dl (6.4-8.2)
[2022-01-27] MEDS: metoPROLOL SUCCINATE 25 MG TAB.SR.24H (FP) PO SCH ×2 (09:58→21:14)
[2022-01-27] MEDS: ASPIRIN 81 MG CHEWABLE TABLETS PO SCH (09:58)
[2022-01-27] MEDS ORDERED: ENOXAPARIN NA (PORCINE) 40 MG/0.4 ML DISP.SYRIN SQ SCH (10:00)
[2022-01-27] MEDS ORDERED: MAGNESIUM OXIDE 400 MG TABLET (FP) PO ONE (10:44)
[2022-01-27] MEDS: ALPRAZolam 0.25 MG TABLET PO PRN ×2 (11:27→21:14)
[2022-01-27 13:44] LABS: EPI CELLS 6 /uL (0-25.1); HYALINE CASTS 1 /uL (0-3.1); PH,URINE 5.5 (5.0-8.0); URINE APPEARANCE CLEAR; URINE BACTERIA >9,000 /uL (0-1359); URINE BILIRUBIN NEGATIVE (NEGATIVE); URINE COLOR YELLOW; URINE GLUCOSE (UA) NEGATIVE (NEGATIVE); URINE KETONE NEGATIVE (NEGATIVE); URINE LEUK ESTERASE TRACE (NEGATIVE); URINE NITRITE NEGATIVE (NEGATIVE); URINE PROTEIN NEGATIVE (NEGATIVE); URINE RBC 7 /uL (0-23.9); URINE UROBILINOGEN 0.2 mg/dL (0.2-1.0); URINE WBC 12 /uL (0-25.8)
[2022-01-27] MEDS: oxyCODONE HCL 5 MG TABLET PO PRN ×2 (13:54→21:14)
[2022-01-27 14:16] LABS: N-TERMINAL BNP 848.8 pg/ml (5-450)
[2022-01-27] MEDS: ATORVASTATIN CA 80 MG TABLET (FP) PO SCH (21:14)
[2022-01-27] MEDS ORDERED: MELATONIN 5 MG TABLETS PO ONE (22:38)
[2022-01-28] MEDS: ALPRAZolam 0.25 MG TABLET PO PRN ×3 (05:26→21:17)
[2022-01-28] MEDS: oxyCODONE HCL 5 MG TABLET PO PRN ×3 (06:26→21:16)
[2022-01-28] MEDS: LEVOTHYROXINE NA 75 MCG TABLET (FP) PO SCH (06:27)
[2022-01-28 08:24] LABS: HEMATOCRIT 41.4 % (32.4-45.2); HEMOGLOBIN 13.8 GM/dL (10.7-15.3); MCH 29.7 pg (25.7-33.7); MCHC 33.2 g/dl (32.0-36.0); MEAN CELL VOLUME 89.2 fl (80-96); MEAN PLT VOLUME 10.2 fl (7.5-11.1); PLATELET COUNT 262 10^3/uL (134-434); RBC 4.64 M/mm3 (3.60-5.2); RDW 14.7 % (11.6-15.6); WHITE BLOOD COUNT 7.2 K/mm3 (4.0-10.0)
[2022-01-28] MEDS: metoPROLOL SUCCINATE 25 MG TAB.SR.24H (FP) PO SCH ×2 (10:05→21:16)
[2022-01-28] MEDS: ASPIRIN 81 MG CHEWABLE TABLETS PO SCH (10:05)
[2022-01-28] MEDS: ACETAMINOPHEN 325 MG TABLET (FP) PO PRN ×2 (10:06→21:17)
[2022-01-28] MEDS: ATORVASTATIN CA 80 MG TABLET (FP) PO SCH (21:16)
[2022-01-29] MEDS: LEVOTHYROXINE NA 75 MCG TABLET (FP) PO SCH (06:26)
[2022-01-29] MEDS: ALPRAZolam 0.25 MG TABLET PO PRN (07:01)
[2022-01-29 07:34] LABS: BASO % 0.4 % (0-2.0); EOS % 3.5 % (0-4.5); HEMATOCRIT 41.4 % (32.4-45.2); HEMOGLOBIN 14.3 GM/dL (10.7-15.3); LYMPH % 28.6 % (8-40); MCHC 34.6 g/dl (32.0-36.0); MEAN CELL VOLUME 89.7 fl (80-96); MEAN PLT VOLUME 9.9 fl (7.5-11.1); MONO % 10.4 % (3.8-10.2); NEUT % 57.1 % (42.8-82.8); PLATELET COUNT 287 10^3/uL (134-434); RBC 4.62 M/mm3 (3.60-5.2); RDW 14.7 % (11.6-15.6); WHITE BLOOD COUNT 7.8 K/mm3 (4.0-10.0)
[2022-01-29 08:03] LABS: CALCIUM 8.8 mg/dL (8.5-10.1); MAGNESIUM 1.9 mg/dL (1.8-2.4)
[2022-01-29 08:06] LABS: CREATININE 0.8 mg/dL (0.55-1.3)
[2022-01-29 08:08] LABS: BILIRUBIN,TOTAL 0.7 mg/dL (0.2-1); TOT PROT 7.1 g/dl (6.4-8.2)
[2022-01-29 08:15] LABS: ALBUMIN 3.8 g/dl (3.4-5.0)
[2022-01-29 08:50] VITALS: BP 138/72; PULSE 69; RESP 18; TEMP 99.2
[2022-01-29] MEDS: ASPIRIN 81 MG CHEWABLE TABLETS PO SCH (09:02)
[2022-01-29] MEDS: metoPROLOL SUCCINATE 25 MG TAB.SR.24H (FP) PO SCH (09:02)
[2022-01-29] MEDS ORDERED: POTASSIUM CHLORIDE TABS 20 MEQ TABLET.ER (FP) PO ONE (10:13)
== END 2022-01-29 12:30 | disposition home or self-care (01) | DRG 281 ==
LOC: JER 09:37 → JERBED 12:23 → OBSVTOIN 13:34 → J4W 18:55
PROVIDERS: ADMIT Internal Medicine; ATTEND Nurse Practitioner Acute Care
DX: I21.4 Non-ST elevation (NSTEMI) myocardial infarction (principal); I47.1 Supraventricular tachycardia; I10 Essential (primary) hypertension; E03.9 Hypothyroidism, unspecified; E78.5 Hyperlipidemia, unspecified; K21.9 Gastro-esophageal reflux disease without esophagitis; F41.1 Generalized anxiety disorder; M48.00 Spinal stenosis, site unspecified
CPT/HCPCS: 36415; 71045-TC-FY; 80053; 80061; 81003; 83036; 83735; 83880; 84100; 84439; 84443; 84484; 85025; 85027; 85379; 85610; 85730; 93005; 93010; 93306-TC; 99285-25; C9803-CS; G0378; J1644; U0003; U0005

== ENCOUNTER 2022-08-14 11:52 | Emergency (ER) | payer OTHER ==
[2022-08-14 12:01] VITALS: RESP 18; TEMP 98.7; BMI 25.0
[2022-08-14] MEDS ORDERED: FAMOTIDINE 20 MG/50 ML IVPB 20 MG/50 ML MG IVPB ONE (12:58)
[2022-08-14] MEDS ORDERED: ACETAMINOPHEN 1000 MG/100 ML BAG IVPB ONE (12:58)
[2022-08-14] MEDS ORDERED: MAG HYDROX/AL HYDROX/SIMETH 30 ML UNIT-DOSE CUP PO ONE (12:58)
[2022-08-14] MEDS ORDERED: DICYCLOMINE HCL 10 MG CAPSULE PO ONE (12:59)
[2022-08-14] MEDS ORDERED: ONDANSETRON 4 MG/2 ML VIAL IVPUSH ONE (13:00)
[2022-08-14] MEDS ORDERED: LACTATED RINGERS SOLUTION 1,000 ML/1,000 ML INFUS.BAG IV SCH (13:00)
[2022-08-14] MEDS ORDERED: LOPERAMIDE HCL 2 MG CAPSULE PO ONE (13:10)
[2022-08-14] MEDS ORDERED: LOPERAMIDE HCL 2 MG CAPSULE ONE (13:13)
[2022-08-14] MEDS ORDERED: MAG HYDROX/AL HYDROX/SIMETH 30 ML UNIT-DOSE CUP ONE (13:13)
[2022-08-14] MEDS ORDERED: ACETAMINOPHEN INJECTION 100 ML IVPB ONE (13:13)
[2022-08-14] MEDS ORDERED: ONDANSETRON 4 MG/2 ML VIAL ONE (13:13)
[2022-08-14] MEDS ORDERED: FAMOTIDINE 10 MG/ML VIAL IVPB ONE (13:14)
[2022-08-14] MEDS ORDERED: DICYCLOMINE HCL 10 MG CAPSULE ONE (13:53)
[2022-08-14 14:32] LABS: BASO % 0.1 % (0-2.0); HEMATOCRIT 43.8 % (32.4-45.2); LYMPH % 10.2 % (8-40); MCH 28.6 pg (25.7-33.7); MCHC 34.3 g/dl (32.0-36.0); MEAN CELL VOLUME 83.4 fl (80-96); MEAN PLT VOLUME 9.8 fl (7.5-11.1); MONO % 8.8 % (3.8-10.2); NEUT % 80.9 % (42.8-82.8); PLATELET COUNT 368 10^3/uL (134-434); RBC 5.26 M/mm3 (3.60-5.2); RDW 14.4 % (11.6-15.6); WHITE BLOOD COUNT 14.8 K/mm3 (4.0-10.0)
[2022-08-14 14:57] LABS: ALBUMIN 4.4 g/dl (3.4-5.0); BLOOD UREA NITROGEN 14.7 mg/dL (7-18); CALCIUM 9.4 mg/dL (8.5-10.1)
[2022-08-14 15:00] LABS: CREATININE 0.8 mg/dL (0.55-1.3)
[2022-08-14 15:01] LABS: BILIRUBIN,TOTAL 1.2 mg/dL (0.2-1)
[2022-08-14 15:02] LABS: TOT PROT 7.9 g/dl (6.4-8.2)
[2022-08-14] MEDS ORDERED: CIPROFLOXACIN 400 MG/D5W 400 MG/200 ML IVPB IVPB ONE (15:05)
[2022-08-14 18:47] VITALS: BP 174/84; PULSE 88
== END 2022-08-14 19:50 | disposition home or self-care (01) ==
LOC: JER 11:52
PROC: 3E03329 Introduction of Other Anti-infective into Peripheral Vein, Percutaneous Approach (ICD-10-PCS; principal; 2022-08-14)
PROC: 3E03329 Introduction of Other Anti-infective into Peripheral Vein, Percutaneous Approach (ICD-10-PCS; 2022-08-14)
PROC: 3E03329 Introduction of Other Anti-infective into Peripheral Vein, Percutaneous Approach (ICD-10-PCS; 2022-08-14)
PROC: 3E033NZ Introduction of Analgesics, Hypnotics, Sedatives into Peripheral Vein, Percutaneous Approach (ICD-10-PCS; 2022-08-14)
PROC: 3E033GC Introduction of Other Therapeutic Substance into Peripheral Vein, Percutaneous Approach (ICD-10-PCS; 2022-08-14)
DX: K51.90 Ulcerative colitis, unspecified, without complications (principal); Z20.822 Contact with and (suspected) exposure to COVID-19
CPT/HCPCS: 0241U-QW; 36415; 80053; 83690; 85025; 93005; 93010; 99284-25

== ENCOUNTER 2022-12-21 10:15 | Inpatient (IN) | payer OTHER ==
[2022-12-21] MEDS ORDERED: ACETAMINOPHEN 325 MG TABLET (FP) PO ONE (11:59)
[2022-12-21] MEDS ORDERED: ACETAMINOPHEN 325 MG TABLET (FP) ONE (12:14)
[2022-12-21] MEDS ORDERED: LIDOCAINE 5% TOPICAL PATCH TP ONE (13:43)
[2022-12-21] MEDS ORDERED: oxyCODONE HCL 5 MG TABLET PO ONE ×2 (13:45→18:30)
[2022-12-21] MEDS ORDERED: LIDOCAINE 5% TOPICAL PATCH ONE (13:58)
[2022-12-21] MEDS ORDERED: oxyCODONE HCL 5 MG TABLET ONE (13:59)
[2022-12-21 15:37] LABS: BASO % 0.4 % (0-2.0); EOS % 0.2 % (0-4.5); HEMATOCRIT 35.7 % (32.4-45.2); HEMOGLOBIN 12.3 GM/dL (10.7-15.3); MCH 29.1 pg (25.7-33.7); MCHC 34.5 g/dl (32.0-36.0); MEAN CELL VOLUME 84.4 fl (80-96); MEAN PLT VOLUME 9.5 fl (7.5-11.1); MONO % 10.8 % (3.8-10.2); NEUT % 70.6 % (42.8-82.8); PLATELET COUNT 232 10^3/uL (134-434); RBC 4.23 M/mm3 (3.60-5.2); RDW 14.2 % (11.6-15.6)
[2022-12-21 16:01] LABS: POTASSIUM 3.6 mmol/L (3.5-5.1)
[2022-12-21 16:03] LABS: CALCIUM 8.4 mg/dL (8.5-10.1)
[2022-12-21 16:04] LABS: ALBUMIN 3.3 g/dl (3.4-5.0); BLOOD UREA NITROGEN 7.2 mg/dL (7-18)
[2022-12-21 16:07] LABS: CREATININE 0.6 mg/dL (0.55-1.3)
[2022-12-21 16:09] LABS: BILIRUBIN,TOTAL 0.7 mg/dL (0.2-1); TOT PROT 5.7 g/dl (6.4-8.2)
[2022-12-21 16:10] LABS: PH,URINE 6.5 (5.0-8.0); URINE APPEARANCE CLEAR; URINE BILIRUBIN NEGATIVE (NEGATIVE); URINE COLOR YELLOW; URINE GLUCOSE (UA) NEGATIVE (NEGATIVE); URINE KETONE NEGATIVE (NEGATIVE); URINE LEUK ESTERASE NEGATIVE (NEGATIVE); URINE NITRITE NEGATIVE (NEGATIVE); URINE PROTEIN NEGATIVE (NEGATIVE); URINE UROBILINOGEN 0.2 mg/dL (0.2-1.0)
[2022-12-21] MEDS ORDERED: HYDROmorphone HCl 2 MG/ML VIAL IVPUSH ONE (18:09)
[2022-12-21] MEDS ORDERED: ALPRAZolam 0.25 MG TABLET PO PRN (18:15)
[2022-12-21] MEDS ORDERED: ACETAMINOPHEN 325 MG TABLET (FP) PO PRN (18:15)
[2022-12-21] MEDS ORDERED: ZOLPIDEM TARTRATE 5 MG TABLET PO PRN (18:15)
[2022-12-21] MEDS ORDERED: HYDROmorphone HCl 2 MG/ML VIAL ONE (18:21)
[2022-12-21] MEDS ORDERED: ATORVASTATIN CA 40 MG TABLET (FP) ONE (21:13)
[2022-12-21] MEDS ORDERED: metoPROLOL SUCCINATE 25 MG TAB.SR.24H (FP) PO ONE (21:13)
[2022-12-21] MEDS ORDERED: ACETAMINOPHEN INJECTION 100 ML IVPB ONE (21:13)
[2022-12-21] MEDS ORDERED: KETOROLAC TROMETHAMINE 15 MG/ML VIAL ONE (21:14)
[2022-12-21] MEDS: ACETAMINOPHEN 1000 MG/100 ML BAG IVPB SCH (21:24)
[2022-12-21] MEDS: KETOROLAC TROMETHAMINE 15 MG/ML VIAL IVPUSH SCH (21:25)
[2022-12-21] MEDS: metoPROLOL SUCCINATE 25 MG TAB.SR.24H (FP) PO SCH (21:25)
[2022-12-21] MEDS ORDERED: ATORVASTATIN CA 40 MG TABLET (FP) PO SCH (22:00)
[2022-12-21] MEDS ORDERED: LIDOCAINE PATCH REMOVAL MC ONE (22:00)
[2022-12-22] MEDS ORDERED: oxyCODONE HCL 5 MG TABLET PO PRN ×3 (01:00)
[2022-12-22] MEDS: ACETAMINOPHEN 1000 MG/100 ML BAG IVPB SCH ×3 (02:33→18:31)
[2022-12-22] MEDS: KETOROLAC TROMETHAMINE 15 MG/ML VIAL IVPUSH SCH ×2 (02:38→11:43)
[2022-12-22 04:12] VITALS: BMI 26.1
[2022-12-22] MEDS ORDERED: ENOXAPARIN NA (PORCINE) 40 MG/0.4 ML DISP.SYRIN SQ SCH (10:00)
[2022-12-22] MEDS ORDERED: ASPIRIN 81 MG CHEWABLE TABLETS PO SCH (10:00)
[2022-12-22] MEDS ORDERED: POLYETHYLENE GLYCOL (HEALTHYLAX) 3350 17 GM PACKET PO SCH (10:00)
[2022-12-22 10:27] LABS: BASO % 0.5 % (0-2.0); EOS % 0.6 % (0-4.5); HEMATOCRIT 35.6 % (32.4-45.2); HEMOGLOBIN 11.8 GM/dL (10.7-15.3); LYMPH % 31.4 % (8-40); MCH 28.8 pg (25.7-33.7); MCHC 33.1 g/dl (32.0-36.0); MEAN PLT VOLUME 10.6 fl (7.5-11.1); MONO % 11.5 % (3.8-10.2); PLATELET COUNT 235 10^3/uL (134-434); RBC 4.09 M/mm3 (3.60-5.2); RDW 14.5 % (11.6-15.6)
[2022-12-22 10:46] LABS: POTASSIUM 3.3 mmol/L (3.5-5.1)
[2022-12-22 10:48] LABS: CALCIUM 8.1 mg/dL (8.5-10.1)
[2022-12-22 10:49] LABS: ALBUMIN 3.2 g/dl (3.4-5.0); BLOOD UREA NITROGEN 9.7 mg/dL (7-18); MAGNESIUM 1.8 mg/dL (1.8-2.4)
[2022-12-22 10:51] LABS: PHOSPHOROUS 3.3 mg/dL (2.5-4.9)
[2022-12-22 10:52] LABS: CREATININE 0.6 mg/dL (0.55-1.3)
[2022-12-22 10:53] LABS: TOT PROT 5.8 g/dl (6.4-8.2)
[2022-12-22 11:03] LABS: BILIRUBIN,TOTAL 0.6 mg/dL (0.2-1)
[2022-12-22] MEDS: metoPROLOL SUCCINATE 25 MG TAB.SR.24H (FP) PO SCH ×2 (11:45→22:30)
[2022-12-22] MEDS ORDERED: POTASSIUM CHLORIDE ORAL LIQUID 20 MEQ/15 ML PO ONE (11:48)
[2022-12-22] MEDS ORDERED: BACITRACIN ZINC 15 GM TUBE TOPICAL OINTMENT TP SCH (12:15)
[2022-12-22] MEDS ORDERED: ALPRAZolam 0.25 MG TABLET PO PRN (18:01)
[2022-12-22] MEDS: DOCUSATE SODIUM 100 MG CAPSULE (FP) PO SCH (21:20)
[2022-12-22] MEDS: ATORVASTATIN CA 40 MG TABLET (FP) PO SCH (21:20)
[2022-12-22] MEDS: oxyCODONE HCL 5 MG TABLET PO PRN (21:20)
[2022-12-22] MEDS: POLYETHYLENE GLYCOL (HEALTHYLAX) 3350 17 GM PACKET PO SCH (21:20)
[2022-12-22] MEDS: ZOLPIDEM TARTRATE 5 MG TABLET PO PRN (22:34)
[2022-12-23] MEDS: ACETAMINOPHEN 1000 MG/100 ML BAG IVPB SCH ×3 (03:03→19:41)
[2022-12-23] MEDS: oxyCODONE HCL 5 MG TABLET PO PRN ×3 (04:26→18:05)
[2022-12-23] MEDS: DOCUSATE SODIUM 100 MG CAPSULE (FP) PO SCH ×3 (06:32→21:21)
[2022-12-23 08:31] LABS: BASO % 0.6 % (0-2.0); EOS % 0.3 % (0-4.5); HEMOGLOBIN 12.4 GM/dL (10.7-15.3); LYMPH % 24.7 % (8-40); MCH 29.1 pg (25.7-33.7); MCHC 34.3 g/dl (32.0-36.0); MEAN CELL VOLUME 84.7 fl (80-96); NEUT % 65.4 % (42.8-82.8); PLATELET COUNT 245 10^3/uL (134-434); RBC 4.25 M/mm3 (3.60-5.2); RDW 14.6 % (11.6-15.6); WHITE BLOOD COUNT 7.2 K/mm3 (4.0-10.0)
[2022-12-23 08:51] LABS: POTASSIUM 3.7 mmol/L (3.5-5.1)
[2022-12-23 09:01] LABS: CALCIUM 8.2 mg/dL (8.5-10.1)
[2022-12-23 09:02] LABS: ALBUMIN 3.2 g/dl (3.4-5.0); MAGNESIUM 1.8 mg/dL (1.8-2.4)
[2022-12-23 09:05] LABS: CREATININE 0.5 mg/dL (0.55-1.3)
[2022-12-23 09:06] LABS: BILIRUBIN,TOTAL 0.5 mg/dL (0.2-1); TOT PROT 5.9 g/dl (6.4-8.2)
[2022-12-23] MEDS: ONDANSETRON 4 MG/2 ML VIAL IVPUSH PRN (09:12)
[2022-12-23] MEDS ORDERED: GABAPENTIN 300 MG CAPSULE PO ONE (10:23)
[2022-12-23] MEDS: POLYETHYLENE GLYCOL (HEALTHYLAX) 3350 17 GM PACKET PO SCH ×2 (10:36→21:22)
[2022-12-23] MEDS: metoPROLOL SUCCINATE 25 MG TAB.SR.24H (FP) PO SCH ×2 (10:36→21:23)
[2022-12-23] MEDS: ASPIRIN 81 MG CHEWABLE TABLETS PO SCH (10:36)
[2022-12-23] MEDS: BACITRACIN ZINC 15 GM TUBE TOPICAL OINTMENT TP SCH (10:37)
[2022-12-23] MEDS: ENOXAPARIN NA (PORCINE) 40 MG/0.4 ML DISP.SYRIN SQ SCH (10:37)
[2022-12-23] MEDS ORDERED: POTASSIUM CHLORIDE ORAL LIQUID 20 MEQ/15 ML PO ONE (16:41)
[2022-12-23] MEDS ORDERED: MAGNESIUM OXIDE 400 MG TABLET (FP) PO ONE (16:41)
[2022-12-23] MEDS: ATORVASTATIN CA 40 MG TABLET (FP) PO SCH (21:22)
[2022-12-23] MEDS: GABAPENTIN 300 MG CAPSULE PO SCH (21:22)
[2022-12-23] MEDS: ZOLPIDEM TARTRATE 5 MG TABLET PO PRN (21:24)
[2022-12-24] MEDS: oxyCODONE HCL 5 MG TABLET PO PRN ×3 (00:11→13:50)
[2022-12-24] MEDS: ACETAMINOPHEN 1000 MG/100 ML BAG IVPB SCH ×2 (03:00→10:36)
[2022-12-24] MEDS: DOCUSATE SODIUM 100 MG CAPSULE (FP) PO SCH ×2 (06:13→14:04)
[2022-12-24 07:40] LABS: BASO % 0.4 % (0-2.0); EOS % 0.7 % (0-4.5); HEMATOCRIT 35.7 % (32.4-45.2); HEMOGLOBIN 11.7 GM/dL (10.7-15.3); LYMPH % 28.5 % (8-40); MCH 28.7 pg (25.7-33.7); MCHC 32.9 g/dl (32.0-36.0); MEAN CELL VOLUME 87.3 fl (80-96); MEAN PLT VOLUME 10.5 fl (7.5-11.1); MONO % 11.9 % (3.8-10.2); NEUT % 58.5 % (42.8-82.8); PLATELET COUNT 244 10^3/uL (134-434); RBC 4.09 M/mm3 (3.60-5.2); RDW 14.6 % (11.6-15.6); WHITE BLOOD COUNT 5.9 K/mm3 (4.0-10.0)
[2022-12-24 07:54] LABS: POTASSIUM 4.3 mmol/L (3.5-5.1)
[2022-12-24 07:58] LABS: ALBUMIN 3.2 g/dl (3.4-5.0); BLOOD UREA NITROGEN 8.3 mg/dL (7-18); CALCIUM 8.4 mg/dL (8.5-10.1)
[2022-12-24 07:59] LABS: MAGNESIUM 2.1 mg/dL (1.8-2.4)
[2022-12-24 08:01] LABS: CREATININE 0.6 mg/dL (0.55-1.3)
[2022-12-24 08:03] LABS: BILIRUBIN,TOTAL 0.4 mg/dL (0.2-1); TOT PROT 5.9 g/dl (6.4-8.2)
[2022-12-24] MEDS: POLYETHYLENE GLYCOL (HEALTHYLAX) 3350 17 GM PACKET PO SCH (10:13)
[2022-12-24] MEDS: GABAPENTIN 300 MG CAPSULE PO SCH (10:14)
[2022-12-24] MEDS: ASPIRIN 81 MG CHEWABLE TABLETS PO SCH (10:15)
[2022-12-24] MEDS: BACITRACIN ZINC 15 GM TUBE TOPICAL OINTMENT TP SCH (10:16)
[2022-12-24] MEDS: ENOXAPARIN NA (PORCINE) 40 MG/0.4 ML DISP.SYRIN SQ SCH (10:19)
[2022-12-24] MEDS: metoPROLOL SUCCINATE 25 MG TAB.SR.24H (FP) PO SCH (10:19)
[2022-12-24] MEDS: ONDANSETRON 4 MG/2 ML VIAL IVPUSH PRN (11:38)
[2022-12-24] MEDS ORDERED: GABAPENTIN 300 MG CAPSULE PO SCH (14:00)
[2022-12-24 15:10] VITALS: BP 134/78; PULSE 63; RESP 16; TEMP 97.6
== END 2022-12-24 14:28 | disposition home or self-care (01) | DRG 552 ==
LOC: JER 10:15 → JERBED 17:23 → J8W 23:28 → OBSVTOIN 12-22 10:51 → J4W 12-22 17:25
PROVIDERS: ADMIT Internal Medicine; ATTEND Nurse Practitioner Family
DX: M54.89 Other dorsalgia (principal); F19.20 Other psychoactive substance dependence, uncomplicated; I47.1 Supraventricular tachycardia; I10 Essential (primary) hypertension; E78.5 Hyperlipidemia, unspecified; E03.9 Hypothyroidism, unspecified; K21.9 Gastro-esophageal reflux disease without esophagitis; G47.00 Insomnia, unspecified; F41.9 Anxiety disorder, unspecified; R29.6 Repeated falls; M50.30 Other cervical disc degeneration, unspecified cervical region; G89.29 Other chronic pain; S00.83XA Contusion of other part of head, initial encounter; W01.0XXA Fall on same level from slipping, tripping and stumbling without subsequent striking against object, initial encounter; Y92.89 Other specified places as the place of occurrence of the external cause
CPT/HCPCS: 36415; 70450-TC; 70486-TC; 71045-TC-FY; 72125-TC; 72131-TC; 72170-TC-FY; 80053; 80061; 81003; 83036; 83735; 84100; 84443; 85025; 87086; 93005; 93010; 97116-GP; 97161-GP; 99285-25; G0378